=== PATIENT | male | born 1940 | race Caucasian/White ===

== ENCOUNTER → 2017-10-06 09:51 | Outpatient (CLI) | payer MEDICARE, OTHER, SELFPAY ==
--- NOTE | 2017-10-06 | DI.US.S_ITS ---
PROCEDURE: US ABDOMEN COMPLETE INDICATIONS: ABNORMAL RESULTS OF LIVER STUDIES TECHNIQUE: Real-time scanning was performed of the abdominal and retroperitoneal organs, with image documentation. COMPARISON: [facility], [place], ABDOMEN COMPLETE, 11/13/2008, 8:03. FINDINGS: Liver: Liver is normal in size and homogeneous in echotexture, diffusely hyperechoic consistent with fatty infiltration (prominent).. Gallbladder: The gallbladder appears normal. Biliary ducts: Intrahepatic bile ducts are non-dilated. Extrahepatic bile duct caliber measures 2.0 mm. Normal is 6-7 mm or less in diameter, or 10 mm or less post-cholecystectomy. Pancreas: Visualized portions of the pancreas are sonographically normal. Spleen: Spleen is normal in size and homogeneous in echotexture. Kidneys: Kidneys are normal in size and echotexture. Right kidney measures 12.6 cm long; left kidney measures 13.1 cm long. No hydronephrosis or nephrolithiasis. No solid masses. There is a 3.0 cm maximal dimension left renal cortical cyst, and 2 adjacent small echogenic foci are present at the renal hilum likely representing vascular calcifications by positioning. Aorta: Visualized aorta is normal in caliber at less than 3 cm. Iliacs: Proximal common iliac arteries are normal in caliber at less than 2.5 cm. IVC: Intrahepatic inferior vena cava is patent. Miscellaneous: No free abdominal fluid. IMPRESSION: Prominent fatty infiltration throughout the liver, no liver mass or biliary distention seen. Normal appearing gallbladder. 3 cm left renal cortical cysts, adjacent punctate calcifications likely are vascular in origin and there is no hydronephrosis. Dictated by: Gabriel Linder M.D. on 10/06/2017 at 10:39 Approved by: Gabriel Linder M.D. on 10/06/2017 at 10:42
== END ==
PROVIDERS: Family Provider Family Medicine; PCP Family Medicine; Visit Provider Family Medicine
DX: K76.0 Fatty (change of) liver, not elsewhere classified (principal); N28.1 Cyst of kidney, acquired; R94.5 Abnormal results of liver function studies
CPT/HCPCS: 76700

== ENCOUNTER → 2018-10-08 08:14 | Outpatient (CLI) | payer MEDICARE, OTHER, SELFPAY ==
--- NOTE | 2018-10-08 | DI.ECHO.S_ITS ---
[facility]---------+ [facility] +---------+ : : [address] : : : : [id number] : : : : Phone: [phone]+ Echocardiogram Report + + :Name: WENDY SMALL Study Date: 10/08/2018 Height: 72 in : :[facility] Exam Location: [facility] Weight: 187 lb : : Gender: Male BSA: 2.1 m2 : :: 1940 Age: 77 yrs BP: 130/50 mmHg: :Reason For Study: Hypertension : :Ordering Physician: Dr. Paige : :Maco Performed By: Ashley Page : + + Interpretation Summary The left ventricle is normal in size. Left ventricular systolic function is normal without focal wall motion abnormalities. The ejection fraction is estimated to be 60-65%. There has been no significant change since the previous study. Diastolic parameters suggest a relaxation abnormality of the left ventricle, consistent with probable normal filling pressures. The right ventricle is normal in size and function. The right ventricular systolic pressure is estimated to be at least 21 mmHg based on an estimated right atrial pressure of 3 mm Hg. The left atrium is moderately dilated. Right atrial size is normal. There is mild to moderate aortic regurgitation. There is no other significant valvular heart disease. The ascending aorta is moderate-severely enlarged. It has increased from 4.5 cm to 4.8 cm. Procedure: A two-dimensional transthoracic echocardiogram with color flow and Doppler was performed. The study quality was technically adequate. Comparison is made with the echocardiogram of 01/14/2016. The patient was in normal sinus rhythm during the exam. Left Ventricle: The left ventricle is normal in size. Left ventricular wall thickness is borderline increased. Left ventricular systolic function is normal without focal wall motion abnormalities. The ejection fraction is estimated to be 60-65%. There has been no significant change since the previous study. Diastolic parameters suggest a relaxation abnormality of the left ventricle, consistent with probable normal filling pressures. Right Ventricle: The right ventricle is normal in size and function. Atria: The left atrium is moderately dilated. Right atrial size is normal. There is no Doppler evidence for an interatrial shunt. Mitral Valve: The mitral valve leaflets are slightly calcified. There is trace mitral regurgitation. Aortic Valve: The aortic valve is trileaflet. The aortic valve is mildly calcified. The peak aortic velocity is 2.1 m/sec. The peak aortic velocity on the previous exam was 2.6 m/sec. The calculated aortic valve area is 2.0 cm2. The aortic valve mean gradient is 9.5 mmHg. There is no hemodynamically significant valvular aortic stenosis. There is mild to moderate aortic regurgitation. Tricuspid Valve: The tricuspid valve is normal in structure and function. There is trace tricuspid regurgitation. The right ventricular systolic pressure is estimated to be at least 21 mmHg based on an estimated right atrial pressure of 3 mm Hg. Pulmonic Valve: The pulmonic valve is not well visualized. There is trace pulmonic regurgitation. There is no other significant valvular heart disease. Great Vessels: The aortic root is normal size. The ascending aorta is moderate-severely enlarged. The aortic arch is normal in size. The pulmonary artery is not well visualized, but is probably normal size. The IVC is of normal diameter and collapses greater than 50% with a sniff. This suggests a low right atrial pressure of 3 mm Hg. Pericardium/ Pleura There is no pericardial effusion. There is no pleural effusion. MMode/2D Measurements & Calculations LVIDd: 4.2 cm LVOT diam: 2.1 cm LVIDs: 2.9 cm Ao root diam: 3.5 cm FS: 29.7 % asc Aorta Diam: 4.8 cm EPSS: 0.45 cm Ao Arch Diam (Prox Trans): 2.9 cm IVSd: 1.0 cm LVPWd: 0.91 cm LV khoury. diameter/BSA (cm/m^2): 2.0 LV sys. diameter/BSA (cm/m^2): 1.4 LA A2 area: 28.1 cm2 RA long axis: 5.3 cm LA A4 area: 19.6 cm2 RA area: 18.1 cm2 LA length (vol): 5.5 cm RA vol: 52.4 ml LA vol: 85.0 ml RA : 25.3 ml/m2 LA vol index: 41.1 ml/m2 IVC diam: 1.8 cm RVD1 (basal): 3.8 cm RVD2 (mid): 3.0 cm Doppler Measurements & Calculations Ao V2 max: 211.5 cm/sec LVOT Max Yuriy: 114.5 cm/sec Ao V2 mean: 147.3 cm/sec LV V1 max P.2 mmHg Ao max P.9 mmHg LV V1 VTI: 22.5 cm Ao mean P.5 mmHg ROEL(I,D): 2.0 cm2 Ao V2 VTI: 37.6 cm ROEL(V,D): 1.8 cm2 sev ratio: 0.60 ROEL indexed to BSA (cm^2/m^2): 0.96 AI P1/2t: 479.3 msec AI dec slope: 214.8 cm/sec2 MV E max yuriy: 85.1 cm/sec TR max yuriy: 210.3 cm/sec MV A max yuriy: 107.2 cm/sec TR max P.7 mmHg MV E/A: 0.79 PA V2 max: 96.2 cm/sec Med Peak E' Yuriy: 6.5 cm/sec PA V2 mean: 70.1 cm/sec E/E' med: 13.1 PA mean P.1 mmHg Lat Peak E' Yuriy: 6.3 cm/sec PA Accel Time: 0.11 sec E/E' lat: 13.5 E/e' average: 13.3 MV dec time: 0.17 sec MV P1/2t: 50.0 msec MV P1/2t max yuriy: 85.3 cm/sec SV(LVOT): 74.8 ml MVA(P1/2t): 4.4 cm2 Reading Physician:06:00 PM
== END ==
PROVIDERS: Family Provider Family Medicine; PCP Family Medicine; Visit Provider Family Medicine
DX: I35.1 Nonrheumatic aortic (valve) insufficiency (principal); I77.89 Other specified disorders of arteries and arterioles; I10 Essential (primary) hypertension
CPT/HCPCS: 93306

== ENCOUNTER → 2019-03-31 10:46 | Outpatient (CLI) | payer MEDICARE, OTHER, SELFPAY ==
--- NOTE | 2019-03-31 | DI.US.S_ITS ---
PROCEDURE: US CAROTID DOPPLER BI INDICATIONS: DIZZINESS AND GIDDINESS TECHNIQUE: Color and pulse Doppler interrogation was performed of both carotid systems, with image documentation and velocity measurements. COMPARISON: None. FINDINGS: Stenosis calculations are based on SRU (Society of Radiologists in Ultrasound) criteria. Right side: Brachial blood pressure: 140/66 mm Hg. Common carotid artery peak systolic velocity: 54 cm/sec. Internal carotid artery peak systolic velocity: 68 cm/sec. Internal carotid artery end diastolic velocity: 12 cm/sec. External carotid artery peak systolic velocity: 73 cm/sec. ICA/CCA peak systolic ratio: 1.3. Gutierrez scale imaging description: Mild scattered plaque. Percent internal carotid artery stenosis: Less than 50%. Vertebral artery: Flow direction is antegrade. Left side: Brachial blood pressure: 154/69 mm Hg. Common carotid artery peak systolic velocity: 49 cm/sec. Internal carotid artery peak systolic velocity: 130 cm/sec. Internal carotid artery end diastolic velocity: 27 cm/sec. External carotid artery peak systolic velocity: 69 cm/sec. ICA/CCA peak systolic ratio: 2.7. Gutierrez scale imaging description: Heavy scattered plaque. Percent internal carotid artery stenosis: 50-69% stenosis. Vertebral artery: Flow direction is antegrade. IMPRESSION: 1. 50-59% left internal carotid artery stenosis. 2. Less than 50% right internal carotid artery stenosis. Dictated by: Fausto MCDERMOTT Interpreted: Silvia Redding MD on 03/31/2019 at 16:20 Approved by: Silvia Redding M.D. on 04/01/2019 at 7:07
== END ==
PROVIDERS: Family Provider Family Medicine; PCP Family Medicine; Visit Provider Family Medicine
DX: I65.23 Occlusion and stenosis of bilateral carotid arteries (principal); R42 Dizziness and giddiness
CPT/HCPCS: 93880

== ENCOUNTER → 2019-08-24 10:34 | Outpatient (CLI) | payer MEDICARE, OTHER, SELFPAY ==
--- NOTE | 2019-08-24 | DI.RAD.S_ITS ---
PROCEDURE: XR LUMBAR SPINE 2-3V INDICATIONS: Low back pain TECHNIQUE: 3 views of the lumbar spine were acquired. COMPARISON: None. FINDINGS: Bones: No fracture or focal osseous destruction. Multilevel degenerative endplate sclerosis and spurring. Diffuse facet arthropathy. Mild narrowing of the L5-S1 disc space. Soft tissues: Scattered vascular calcifications seen in the aorta. IMPRESSION: Lower lumbar spondylosis and facet arthropathy as above Dictated by: Yovani Rivera M.D. on 08/24/2019 at 12:33 Approved by: Yovani Rivera M.D. on 08/24/2019 at 12:34
--- NOTE | 2019-08-24 | DI.RAD.S_ITS ---
PROCEDURE: XR HIP W PEL IF DONE LT 2V INDICATIONS: Low back pain TECHNIQUE: AP pelvis with lateral view(s) of the left hip(s). COMPARISON: None. FINDINGS: Bones: No fractures or dislocations. Pelvic ring appears intact. No suspicious bony lesions. Bilateral mild hip joint degeneration and lower lumbar spondylosis. Soft tissues: The visualized bowel gas pattern is normal. No suspicious soft tissue calcifications. IMPRESSION: Mild bilateral hip joint degeneration Lower lumbar spondylosis Dictated by: Yovani Rivera M.D. on 08/24/2019 at 12:31 Approved by: Yovani Rivera M.D. on 08/24/2019 at 12:33
== END ==
PROVIDERS: Family Provider Family Medicine; PCP Family Medicine; Referring Provider Family Medicine; Visit Provider Family Medicine
DX: M54.5 Low back pain (principal); M16.0 Bilateral primary osteoarthritis of hip; M47.816 Spondylosis without myelopathy or radiculopathy, lumbar region; M48.07 Spinal stenosis, lumbosacral region
CPT/HCPCS: 72100; 73502

== ENCOUNTER → 2019-10-31 10:17 | Outpatient (CLI) | payer MEDICARE, OTHER, SELFPAY ==
[2019-11-01 09:58] LABS: COVID19 Sendout Not Detected (Not Detect)
== END ==
PROVIDERS: PCP Family Medicine; Visit Provider Student in an Organized Health Care Education/Training Program
DX: Z01.812 Encounter for preprocedural laboratory examination (principal)
CPT/HCPCS: 87635

== ENCOUNTER 2019-11-03 12:10 | Day surgery (SDC) | payer MEDICARE, OTHER, SELFPAY ==
[2019-11-03] VITALS (9 sets, daily range): BP systolic 134–154; BP diastolic 54–67; PULSE 55–69; RESP 13–18; TEMP 36.3–36.6; O2SAT 92–100; BMI 24.4
--- NOTE | 2019-11-03 | PATH_ITS ---
[facility] Accession Number: [id number] . 01 Material submitted: . gastrointestinal site - RANDOM GASTRIC BIOPSIES . 02 Diagnosis: Stomach, Random Biopsies: Acute erosive gastritis. No evidence of Helicobacter on H/E stain. Negative for intestinal metaplasia. Negative for dysplasia and malignancy. [facility] 11/04/2019 1040 Local . 02 Comment: A Helicobacter immunohistochemical stain will be performed and the results reported as an addendum. . 02 Electronically signed: . Yana Rueda MD, Pathologist NPI- [id number] . 01 Gross description: . RANDOM GASTRIC BIOPSIES: Received in formalin is 1 fragment(s) of alexander, soft tissue measuring 0.3 x 0.2 x 0.2 cm submitted entirely in 1 cassette(s) /DOUGLAS 11/04/2019 0028 Local . 02 Pathologist provided ICD-10: D64.9, K29.70 . 02 CPT . 233043, [id number] Performed at: 01 [facility] [address], [place], [place] [id number] MD Cristhian Teresa MD Phone: [phone] Performed at: 02 [facility] [address] [place], [place] [id number] MD Yana Rueda MD Phone: [phone]
[2019-11-03] MEDS: LACTATED RINGERS 1,000 ML 200 ML IV (13:20)
--- NOTE | 2019-11-03 14:32 | PM.PREOP ---
Pre-operative Note COVID-19 COVID-19 status: Negative Interval Note History & Physical reviewed/Exam performed by Physician: Yes Changes to H&P: No ASA Class (for procedural sedation): II
[2019-11-03] MEDS: LIDOCAINE 4% SOLN 50 ML 20 ML TOP (14:41)
[2019-11-03] MEDS: MIDAZOLAM 5 MG/5 ML VIAL IV (14:43)
[2019-11-03] MEDS: fentaNYL 250 MCG/5 ML INJ IV (14:43)
--- NOTE | 2019-11-03 14:44 | PM.OP.ENDO ---
Operative Date/Time/Diagnoses Date of procedure: 11/03/19 Time of procedure: 14:44 Pre-op diagnosis: Anemia Post-op diagnosis: same Procedure & Clinicians Study performed: Esophagoduodenoscopy Colonoscopy Same procedure as scheduled: Yes Indications: 79-year-old man with history of anemia here for diagnostic EGD and colonoscopy Surgeon: Taj Sapp Procedure Notes SCOAP/Timeout: Performed Procedure in detail: Patient placed in left lateral decubitus position. Time out was performed. Procedural sedation was administered with Versed and Fentanyl. A bite block was placed. the scope was inserted into the mouth and advanced through the esophagus and into the stomach. Stomach was notable for mild gastritis in the antrum. There was no specific ulcer but there was gastritis and several random gastric biopsies were taken. The pylorus was intubated and the duodenum was normal. The scope was retroflexed within the stomach and there was no hiatal hernia. The scope was withdrawn into the esophagus the Z line was seen at 40 cm from the incisions. There was no birch's esophagitis or masses or strictures. Stomach was desufflated and scope removed. Patient tolerated procedure well. Patient placed in left lateral decubitus position. Time out was performed. Procedural sedation was administered with Versed and Fentanyl. A rectal exam demonstrated no external hemorrhoids no internal masses. Colonoscopy scope was placed into the rectum and advanced through the colon to the cecum. The ileocecal valve was identified. The scope was then slowly withdrawn examining colon thoroughly in all directions. The colonoscopy was notable for the following 1. No masses or polyps 2. Quality of prep excellent 3. Grade 1 internal hemorrhoids Scope withdrawal time: 6 Sedation minutes: 28 Findings: gastritis Specimen(s): other (gastric biopsy) Complications: none Impression: gastritis Post-procedure Recommendations: Colonscopy in 10 years, Prescription for (omeprazole) and No ASA/NSAIDS Disposition: same day surgery
== END 2019-11-03 16:10 | disposition home or self-care (01) ==
PROVIDERS: PCP Family Medicine; Referring Provider Surgery; Visit Provider Surgery
PROC: 0DJD8ZZ Inspection of Lower Intestinal Tract, Via Natural or Artificial Opening Endoscopic (ICD-10-PCS; CPT 45378; principal; 2019-11-03 13:45)
PROC: 0DJ08ZZ Inspection of Upper Intestinal Tract, Via Natural or Artificial Opening Endoscopic (ICD-10-PCS; CPT 43235; 2019-11-03 13:45)
DX: K29.00 Acute gastritis without bleeding (principal); D64.9 Anemia, unspecified; E11.9 Type 2 diabetes mellitus without complications; I10 Essential (primary) hypertension; K64.0 First degree hemorrhoids
CPT/HCPCS: 43239; 45378; 99152; 99153; J2250; J3010

== ENCOUNTER → 2020-01-17 06:14 | Outpatient (CLI) | payer MEDICARE, OTHER, SELFPAY ==
--- NOTE | 2020-01-17 | DI.ECHO.S_ITS ---
[facility]---------+ [facility] +---------+ : : [address] : : : : [id number] : : : : Phone: [phone]+ Echocardiogram Report + + :Name: WENDY SMALL Study Date: 01/17/2020 Height: 70 in : :[facility] Weight: 190 lb : : Gender: Male BSA: 2.0 m2 : :: 1940 Age: 79 yrs BP: 151/67 mmHg: :Reason For Study: DIZZINESS : :Ordering Physician: Dr. Paige : :Maco Performed By: Amy Barron : :Referring: RUTHANN HENDERSON L : + + Interpretation Summary 1) Normal left ventricular size, thickness, wall motion, and systolic function (EF 65-70%). 2) Normal right ventricular size and function. 3) Diastolic parameters suggest a pseudonormalization pattern, consistent with probable elevated filling pressures. 4) There is mild aortic stenosis. 5) There is mild to moderate aortic regurgitation. 6) The ascending aorta is moderately enlarged at 4.8cm. 7) Hypertension present during the study (BP 151/67mmHg). 8) Compared to the Echo done 10/08/2018, no significant change. Procedure: A two-dimensional transthoracic echocardiogram with color flow and Doppler was performed. The study quality was technically adequate. Comparison is made with the echocardiogram of 10/08/2018. The patient was in sinus bradycardia with heart rates between 59-64 bpm during the exam. Left Ventricle: The left ventricle is normal in size and wall thickness. The ejection fraction is estimated to be 65-70%. Left ventricular systolic function is normal without focal wall motion abnormalities. Diastolic parameters suggest a pseudonormalization pattern, consistent with probable elevated filling pressures. Right Ventricle: The right ventricle is normal in size and function. Atria: The left atrium is moderately dilated. Right atrial size is normal. There is no Doppler evidence for an interatrial shunt. Mitral Valve: The mitral valve leaflets are mildly calcified. There is mild mitral annular calcification. There is trace mitral regurgitation. Aortic Valve: The aortic valve is mildly calcified. The peak aortic velocity is 2.26 m/sec. The aortic valve mean gradient is 11.4 mmHg. The calculated aortic valve area is 1.8 cm2. There is mild aortic stenosis. There is mild to moderate aortic regurgitation. Tricuspid Valve: The tricuspid valve is normal in structure and function. There is trace tricuspid regurgitation. Pulmonary artery pressures cannot be estimated because of the lack of a measurable TR jet velocity but the IVC suggests a CVP of around 3 mmHg. Pulmonic Valve: The pulmonic valve is not well visualized. There is no pulmonic valvular regurgitation. Great Vessels: The aortic root is normal size. The ascending aorta is moderately enlarged. The IVC is of normal diameter and collapses greater than 50% with a sniff. This suggests a low right atrial pressure of 3 mm Hg. Pericardium/ Pleura There is no pericardial effusion. There is no pleural effusion. MMode/2D Measurements & Calculations LVIDd: 4.5 cm LVOT diam: 2.1 cm LVIDs: 3.2 cm Ao root diam: 3.5 cm FS: 28.8 % asc Aorta Diam: 4.8 cm EPSS: 0.64 cm Ao Arch Diam (Prox Trans): 2.9 cm IVSd: 1.2 cm LVPWd: 1.1 cm LV khoury. diameter/BSA (cm/m^2): 2.2 LV sys. diameter/BSA (cm/m^2): 1.6 LA A2 area: 25.8 cm2 RA long axis: 5.2 cm LA A4 area: 18.1 cm2 RA area: 17.0 cm2 LA length (vol): 5.2 cm RA vol: 47.2 ml LA vol: 76.0 ml RA : 23.1 ml/m2 LA vol index: 37.2 ml/m2 IVC diam: 1.4 cm RVD1 (basal): 3.2 cm TAPSE: 2.4 cm Doppler Measurements & Calculations Ao V2 max: 226.3 cm/sec LVOT Max Yuriy: 114.7 cm/sec Ao V2 mean: 157.9 cm/sec LV V1 max P.3 mmHg Ao max P.5 mmHg LV V1 VTI: 28.3 cm Ao mean P.4 mmHg ROEL(I,D): 1.8 cm2 Ao V2 VTI: 56.9 cm ROEL(V,D): 1.8 cm2 sev ratio: 0.50 ROEL indexed to BSA (cm^2/m^2): 0.87 AI P1/2t: 563.5 msec AI dec slope: 222.1 cm/sec2 MV E max yuriy: 91.4 cm/sec PA V2 max: 78.2 cm/sec MV A max yuriy: 95.3 cm/sec PA V2 mean: 54.0 cm/sec MV E/A: 0.96 PA mean P.3 mmHg Med Peak E' Yuriy: 6.0 cm/sec PA pr(Accel): 17.3 mmHg E/E' med: 15.3 Lat Peak E' Yuriy: 6.6 cm/sec E/E' lat: 13.8 E/e' average: 14.6 MV dec time: 0.17 sec SV(LVOT): 100.6 ml Reading Physician:05:28 PM
--- NOTE | 2020-01-17 | DI.US.S_ITS ---
PROCEDURE: US CAROTID DOPPLER BI INDICATIONS: DIZZINESS TECHNIQUE: Color and pulse Doppler interrogation was performed of both carotid systems, with image documentation and velocity measurements. COMPARISON: [facility], , US CAROTID DOPPLER BI, 03/31/2019, 11:52. FINDINGS: Stenosis calculations are based on SRU (Society of Radiologists in Ultrasound) criteria. Right side: Brachial blood pressure: 148/63 mm Hg. Common carotid artery peak systolic velocity: 54 cm/sec. Internal carotid artery peak systolic velocity: 47 cm/sec. Internal carotid artery end diastolic velocity: 12 cm/sec. External carotid artery peak systolic velocity: 54 cm/sec. ICA/CCA peak systolic ratio: 0.9. Gutierrez scale imaging description: Mild calcific plaque at the proximal internal carotid artery without luminal stenosis. Percent internal carotid artery stenosis: Less than 50% . Vertebral artery: Flow direction is antegrade. Left side: Brachial blood pressure: 136/64 mm Hg. Common carotid artery peak systolic velocity: 60 cm/sec. Internal carotid artery peak systolic velocity: 134 cm/sec. Internal carotid artery end diastolic velocity: 32 cm/sec. External carotid artery peak systolic velocity: 87 cm/sec. ICA/CCA peak systolic ratio: 2.2. Gutierrez scale imaging description: Moderate intimal medial thickening throughout the common carotid artery. Calcific plaque in the carotid bulb without significant stenosis. Noncalcified plaque circumferentially narrowing the internal carotid artery. Percent internal carotid artery stenosis: 50-69% Vertebral artery: Flow direction is antegrade. IMPRESSION: 1. Stable, 50-69% left ICA stenosis. 2. Less than 50% right ICA stenosis. Dictated by: Sarah Roa M.D. on 01/17/2020 at 9:30 Approved by: Sarah Roa M.D. on 01/17/2020 at 9:44
== END ==
PROVIDERS: PCP Family Medicine; Referring Provider Family Medicine; Visit Provider Family Medicine
DX: I65.23 Occlusion and stenosis of bilateral carotid arteries (principal); I35.2 Nonrheumatic aortic (valve) stenosis with insufficiency; I77.89 Other specified disorders of arteries and arterioles; R42 Dizziness and giddiness
CPT/HCPCS: 93306; 93880

== ENCOUNTER → 2020-09-20 11:38 | Outpatient (CLI) | payer MEDICARE, OTHER, SELFPAY ==
--- NOTE | 2020-09-20 | DI.US.S_ITS ---
PROCEDURE: US CAROTID DOPPLER BI INDICATIONS: DIZZINESS TECHNIQUE: Color and pulse Doppler interrogation was performed of both carotid systems, with image documentation and velocity measurements. COMPARISON: None. FINDINGS: Stenosis calculations are based on SRU (Society of Radiologists in Ultrasound) criteria. Right side: Brachial blood pressure: 133/70 mm Hg. Common Carotid Artery PSV: - Distal: 61 cm/s (previously 52 cm/s) Internal Carotid Artery PSV - 59 cm/s (previously 47 cm/s) EDV- 19 cm/s (previously 12 cm/s) External Carotid Artery PSV- Proximal: 83 cm/s (previously 54 cm/s) ICA/CCA PSV- Ratio: 1.0 (previously 0.9 cm/s) Gutierrez scale imaging description: Mild stenosis secondary to hard plaque Percent internal carotid artery stenosis: Less than 50% . (previously less than 50%) Vertebral artery: Flow direction is antegrade. Left side: Brachial blood pressure: 143/68 mm Hg. Common Carotid Artery PSV- Distal: 59 cm/s (previously 60 cm/s) Internal Carotid Artery PSV- 129 cm/s (previously 134 cm/s) EDV- 33 cm/s (previously 32 cm/s) External Carotid Artery PSV- Proximal: 84 cm/s (previously 87 cm/s) ICA/CCA PSV- Ratio: 2.2 (previously 2.2 cm/s) Gutierrez scale imaging description: Soft plaque results in moderate, 50-69% proximal internal carotid artery stenosis. Percent internal carotid artery stenosis: 50-69% . (previously 50-69%) Vertebral artery: Flow direction is antegrade. IMPRESSION: 1. Findings are stable. 2. Mild, less than 50% right internal carotid artery stenosis. 3. Moderate, 50-69% left internal carotid artery stenosis. Dictated by: Peter Bedoya M.D. on 09/21/2020 at 9:14 Approved by: Peter Bedoya M.D. on 09/21/2020 at 9:21
== END ==
PROVIDERS: PCP Family Medicine; Referring Provider Family Medicine; Visit Provider Family Medicine
DX: I35.0 Nonrheumatic aortic (valve) stenosis (principal); R42 Dizziness and giddiness
CPT/HCPCS: 93880

== ENCOUNTER → 2021-10-25 08:29 | Outpatient (CLI) | payer MEDICARE, OTHER, SELFPAY ==
--- NOTE | 2021-10-25 | DI.ECHO.S_ITS ---
[facility]---------+ [facility] +---------+ : : [address] : : : : [id number] : : : : Phone: [phone]+ Echocardiogram Report + + :Name: WENDY SMALL Study Date: 10/25/2021 Height: 72 in : :[facility] ReadingLocation: Weight: 185 lb : : Gender: Male BSA: 2.1 m2 : :: 1940 Age: 81 yrs BP: 142/68 mmHg: :Reason For Study: DIZZINESS AND GIDDINESS : :Ordering Physician: SANTIAGO, : :RUTHANN Bryant Performed By: Amy Barron : :Referring: RUTHANN HENDERSON : + + Interpretation Summary The left ventricle is normal in size. Left ventricular systolic function is normal. LV ejection fraction 55 to 60%. The right ventricle is normal in size and function. The aortic valve is trileaflet. There is mildly reduced leaflet mobility. The peak aortic velocity is 2.4 m/sec. The aortic valve mean gradient is 14 mmHg. The peak aortic velocity on the previous exam was 2.26 m/sec. There is mild aortic stenosis. There is mild to moderate aortic regurgitation. The ascending aorta is moderately enlarged. 4.8 cm in diameter. Without any significant change from the previous study. Procedure: A two-dimensional transthoracic echocardiogram with color flow and Doppler was performed. The study quality was technically adequate. Comparison is made with the echocardiogram of 01/17/2020. The patient was in sinus rhythm with heart rates between 64-86 bpm during the exam. Left Ventricle: The left ventricle is normal in size. Left ventricular wall thickness is mildly increased. There is no thrombus. The ejection fraction is estimated to be 55-60%. Left ventricular systolic function is normal. There are no focal wall motion abnormalities. Diastolic parameters suggest a relaxation abnormality of the left ventricle, consistent with probable normal filling pressures. Right Ventricle: The right ventricle is normal in size and function. Atria: The left atrial size is normal. The left atrium has mildly decreased in size since the prior echo exam. Right atrial size is normal. There is no Doppler evidence for an interatrial shunt. Mitral Valve: The mitral valve leaflets are mildly calcified. There is mild to moderate mitral annular calcification. No significant mitral valve stenosis. There is mild mitral regurgitation. Compared to the prior echo study, there has been no change in the severity of mitral regurgitation. Aortic Valve: The aortic valve is mildly calcified. The aortic valve is trileaflet. There is mildly reduced leaflet mobility. There is mild aortic stenosis. The peak aortic velocity is 2.4 m/sec. The aortic valve mean gradient is 14 mmHg. The calculated aortic valve area is 1.4 cm2. The peak aortic velocity on the previous exam was 2.26 m/sec. There is mild to moderate aortic regurgitation. Tricuspid Valve: The tricuspid valve is normal in structure and function. There is trace tricuspid regurgitation. The right ventricular systolic pressure is estimated to be at least 28 mmHg based on an estimated right atrial pressure of 8 mm Hg. Pulmonic Valve: The pulmonic valve is not well seen, but is grossly normal. There is no pulmonic valvular regurgitation. Great Vessels: The aortic root is normal size. The ascending aorta is moderately enlarged. The IVC is dilated (diameter is greater than 2.1 cm) yet it collapses greater than 50% with a sniff. This suggests a right atrial pressure of 8 mm Hg. Pericardium/ Pleura There is no pericardial effusion. There is no pleural effusion. MMode/2D Measurements & Calculations LVIDd: 4.7 cm LVOT diam: 2.1 cm LVIDs: 3.2 cm Ao root diam: 3.3 cm FS: 31.5 % asc Aorta Diam: 4.8 cm EPSS: 0.90 cm Ao Arch Diam (Prox Trans): 3.1 cm IVSd: 1.1 cm LVPWd: 1.3 cm LV khoury. diameter/BSA (cm/m^2): 2.3 LV sys. diameter/BSA (cm/m^2): 1.6 LA A2 area: 24.6 cm2 RA long axis: 5.4 cm LA A4 area: 15.9 cm2 RA area: 16.9 cm2 LA length (vol): 5.2 cm RA vol: 44.4 ml LA vol: 64.0 ml RA : 21.6 ml/m2 LA vol index: 31.0 ml/m2 IVC diam: 1.9 cm RVD1 (basal): 3.1 cm RVD2 (mid): 2.6 cm TAPSE: 2.1 cm Doppler Measurements & Calculations Ao V2 max: 245.2 cm/sec LVOT Max Yuriy: 100.1 cm/sec Ao V2 mean: 164.0 cm/sec LV V1 max P.0 mmHg Ao max P.6 mmHg LV V1 VTI: 23.4 cm Ao mean P.7 mmHg ROEL(I,D): 1.5 cm2 Ao V2 VTI: 53.1 cm ROEL(V,D): 1.4 cm2 sev ratio: 0.44 ROEL indexed to BSA (cm^2/m^2): 0.73 AI P1/2t: 514.3 msec AI dec slope: 241.4 cm/sec2 MV E max yuriy: 82.4 cm/sec TR max yuriy: 222.5 cm/sec MV A max yuriy: 93.1 cm/sec TR max P.8 mmHg MV E/A: 0.88 PA V2 max: 112.0 cm/sec Med Peak E' Yuriy: 5.8 cm/sec PA V2 mean: 77.5 cm/sec E/E' med: 14.3 PA mean P.6 mmHg Lat Peak E' Yuriy: 6.8 cm/sec PA pr(Accel): 22.5 mmHg E/E' lat: 12.1 E/e' average: 13.2 MV dec time: 0.19 sec SV(LVOT): 79.5 ml Reading Physician:02:46 PM
--- NOTE | 2021-10-25 10:42 | DI.US.S_ITS ---
PROCEDURE: US CAROTID DOPPLER BI INDICATIONS: DIZZINESS AND GIDDINESS TECHNIQUE: Color and pulse Doppler interrogation was performed of both carotid systems, with image documentation and velocity measurements. COMPARISON: [facility], [place], US CAROTID DOPPLER BI, 09/20/2020, 13:25. FINDINGS: Stenosis calculations are based on SRU (Society of Radiologists in Ultrasound) criteria. Right side: Brachial blood pressure: 138/68 mm Hg. Common carotid artery peak systolic velocity: 50 cm/sec. Internal carotid artery peak systolic velocity: 58 cm/sec. Internal carotid artery end diastolic velocity: 10 cm/sec. External carotid artery peak systolic velocity: 74 cm/sec. ICA/CCA peak systolic ratio: 1.2 . Gutierrez scale imaging description: Mild atherosclerotic plaque Percent internal carotid artery stenosis: Less than 50% . Vertebral artery: Flow direction is antegrade. Left side: Brachial blood pressure: 145/72 mm Hg. Common carotid artery peak systolic velocity: 50 cm/sec. Internal carotid artery peak systolic velocity: 176 cm/sec, previously 129. Internal carotid artery end diastolic velocity: 26 cm/sec. External carotid artery peak systolic velocity: 83 cm/sec. ICA/CCA peak systolic ratio: 3.5, previously 2.2 Gutierrez scale imaging description: Moderate atherosclerotic plaque Percent internal carotid artery stenosis: Greater than 50 % . Vertebral artery: Flow direction is antegrade. IMPRESSION: 1. Atherosclerotic stenosis in proximal left ICA correlates with a 50-69% stenosis, nevertheless increased from the prior. 2. Stable less than 50% right proximal ICA stenosis. Approved by: Tre Lindsey M.D. on 10/25/2021 at 12:25
== END ==
PROVIDERS: PCP Family Medicine; Referring Provider Family Medicine; Visit Provider Family Medicine
DX: I65.23 Occlusion and stenosis of bilateral carotid arteries (principal); R42 Dizziness and giddiness; I35.0 Nonrheumatic aortic (valve) stenosis
CPT/HCPCS: 93306; 93880

== ENCOUNTER 2022-10-28 07:34 | Day surgery (SDC) | payer MEDICARE, OTHER, SELFPAY ==
[2022-10-17 10:44] VITALS: BMI 26.4
[2022-10-28 08:15] VITALS: BMI 26.4
[2022-10-28] MEDS: LACTATED RINGERS 1,000 ML 21 ML IV (08:23)
[2022-10-28 08:24] VITALS: BP 144/64; PULSE 71; RESP 16; TEMP 36.5; O2SAT 98
--- NOTE | 2022-10-28 08:33 | PM.PREOP ---
Pre-operative Note COVID-19 COVID-19 status: Not tested Criteria for continued procedure: Delay expected to result in less-positive ultimate med/surg outcome and Non-surgical alternatives not available or appropriate per current SOC Interval Note History & Physical reviewed/Exam performed by Physician: Yes Changes to H&P: No
[2022-10-28] MEDS: CEFAZOLIN 2 GM/100 ML PREMIX 100 ML IV (09:12)
--- NOTE | 2022-10-28 09:30 | SUR.OPER ---
Lithotomy on padded OR bed, head on pillow, left arms secured on padded arm board at <90 degrees abduction, right arm tucked with gel pad. Legs secured in padded yellow fins stirrups.
--- NOTE | 2022-10-28 09:57 | P.OP_ITS ---
Procedure & Clinicians Procedure: Photo vaporization and laser enucleation of prostate Same procedure as scheduled: Yes Indications: This 82-year-old male presented with profound complaints of bladder outlet obstruction, lower urinary tract symptoms and was found to have a median lobe and obstructing prostate he presents this time for the above procedure to eliminate and improve his urinary symptoms. Surgeon: Tesfaye Higginbotham Click Yes if Unassisted: Yes Anesthesia Type: General Operative Notes Findings: Urethra normal to the prostatic fossa which shows trilobar obstruction median lobe bulging into the bladder. Ureteral orifices in normal position with clear efflux there severe trabeculation cellules mucosa is otherwise normal no evidence of fistula stone. At the end of the procedure the prostatic fossa was widely patent and with the bladder full and the scope removed vigorous stream was noted. Total laser time was 13 minutes 51 seconds total laser energy 122,679 joules. Twenty-two Norwegian 5 cc Rice catheter was left in place with 14 cc in the balloon. Closure Type: not applicable Specimen(s): none sent Prosthetic devices, grafts, tissues, transplants, or devices: Twenty-two Norwegian 5 cc Rice catheter with 14 cc sterile water in the balloon. Applied: catheter (Twenty-two Norwegian 5 cc Rice catheter with 14 cc of sterile water in the balloon) Estimated Blood Loss (mL): 10 Blood products transfused: none Procedure in detail: Procedure in detail: After informed consent was obtained, the patient was identified and brought to the operating room where he is placed in a supine position on the table and had anesthesia induced and maintained. Showing an adequate level of anesthesia the patient was transitioned to the lithotomy position where he was prepped, draped, prepared for Transurethral procedure. After prepping, draping, time-out and ensuring an adequate level of anesthesia the laser resectoscope was passed through the urethral prostate and into the bladder under direct vision once within the bladder cystoscopy was performed. The laser fiber was then inserted in the lateral lobes were marked at the level of the verumontanum with the laser as the distal extent of resection. Then in the lateral sulci right and left of the median lobe a ?flow channel? was made us ing the laser. With this the median lobe was undermined and enucleated. It was then vaporized with this done attention was then turned to the lateral lobes which were vaporized from the bladder neck to the level of the verumontanum sequentially till the prostatic fossa was widely patent and open. This took total laser energy of 122,679 joules. With hemostasis secured the bladder was filled scope was removed and a vigorous stream was noted. The 22 Norwegian catheter was then passed into the bladder the balloon filled with 14 cc of sterile water and placed to gravity drainage. At this point the patient was awakened transferred to the postanesthesia care unit for recovery he tolerated the procedure well and there were no complications. Patient will be discharged to home with a Rice catheter and will follow up in my office in the morning for catheter removal and voiding trial. Complications: none Post-operative Condition: stable Disposition: PACU Plan for aftercare: Patient to be discharged home with a Rice catheter to follow up my office in the morning for catheter removal and voiding trial.
[2022-10-28 10:03] VITALS: BP 178/79; PULSE 92; RESP 13; TEMP 36.2; O2SAT 98
[2022-10-28 10:09] VITALS: PULSE 94; RESP 14; TEMP 36.2; O2SAT 98
[2022-10-28 10:11] VITALS: BP 174/81
[2022-10-28] MEDS: OXYCODONE/ACETAMINOPHEN 5/325 TABLET 1 TAB PO (10:16)
[2022-10-28] MEDS: PHENAZOPYRIDINE 100 MG TABLET 200 MG PO (10:16)
[2022-10-28] MEDS: OXYBUTYNIN 5 MG TABLET PO (10:16)
[2022-10-28 10:17] VITALS: BP 141/68; PULSE 78; RESP 14; TEMP 36.2; O2SAT 99
[2022-10-28 10:25] VITALS: BP 139/62; PULSE 72; RESP 11; TEMP 36.2; O2SAT 99
--- NOTE | 2022-10-28 11:08 | SUR.PHASEII ---
discharge instructions review with spouse
== END 2022-10-28 11:08 | disposition home or self-care (01) ==
PROVIDERS: PCP Family Medicine; Referring Provider Urology; Visit Provider Urology
PROC: (CPT 52648; principal; 2022-10-28 09:15)
DX: N32.0 Bladder-neck obstruction (principal); N40.1 Benign prostatic hyperplasia with lower urinary tract symptoms; R39.9 Unspecified symptoms and signs involving the genitourinary system
CPT/HCPCS: 52648; 82962; J0690; J1100; J2405; J2704; J3010

== ENCOUNTER → 2022-12-09 15:50 | Outpatient (CLI) | payer MEDICARE, OTHER, SELFPAY | PROVIDERS: PCP Family Medicine; Visit Provider Urology | DX: N40.1 Benign prostatic hyperplasia with lower urinary tract symptoms (principal); R39.12 Poor urinary stream; R33.9 Retention of urine, unspecified; R39.9 Unspecified symptoms and signs involving the genitourinary system; N32.0 Bladder-neck obstruction; R35.1 Nocturia; Z87.891 Personal history of nicotine dependence | CPT/HCPCS: 51798; 81002; 87086 ==

== ENCOUNTER → 2023-06-05 10:54 | Outpatient (CLI) | payer MEDICARE, OTHER, SELFPAY ==
--- NOTE | 2023-06-05 10:57 | DI.CT.S_ITS ---
PROCEDURE: CT ANGIO CHEST ABDOMEN PELVIS INDICATIONS: Aneurysm of the ascending aorta, without rupture TECHNIQUE: Precontrast 5 mm thick sections acquired from the lung apices to the iliac crests. After the administration of intravenous contrast, 2.5 mm thick sections again acquired from the lung apices to the iliac crests. Maximum intensity projection (MIP) oblique sagittal and coronal reformats were then acquired. For radiation dose reduction, the following was used: automated exposure control. COMPARISON: None. FINDINGS: Image quality: Diagnostic. AORTA: The ascending thoracic aorta measures 5.0 cm in oblique axial diameter at the 2:00 o'clock and 8 o'clock position. The thoracic aortic arch in the descending thoracic aorta demonstrate normal course and caliber. Scattered atheromatous calcifications are present at the thoracic arch. The celiac axis, SMA, bilateral renal arteries and the ADONIS are patent. Atheromatous calcifications are scattered throughout the abdominal aorta and the iliac arteries without focal hemodynamically significant stenosis or aortic dissection. CHEST: Lower Neck: No enlarged lymph nodes. Thyroid: No thyroid nodules which require sonographic evaluation. Axillae: No enlarged lymph nodes. Chest Wall: Unremarkable. Lungs and Pleura: No pneumothorax or pleural effusions. There is bilateral apical scarring. No acute airspace opacities. No suspicious pulmonary nodules. Heart: Heart size is normal. No pericardial effusion. Thoracic Vessels: Pulmonary arteries demonstrate normal size. Mediastinum and Amy: No enlarged lymph nodes. Esophagus: No wall thickening. No hiatal hernia. ABDOMEN: Liver: No solid mass. Gallbladder: No radiopaque gallstones or wall thickening. Biliary ducts: No biliary dilation. Pancreas: No ductal dilation. Spleen: Size is within normal limits. Adrenal Glands: No adrenal nodules. Kidneys and Ureters: There are bilateral nonobstructing renal calculi. The largest on the right measures 9 mm in diameter and the largest on the left measures 9 mm in diameter. No hydronephrosis, hydroureter, or ureterolithiasis. There are bilateral low-density cortical cystic lesions. Stomach and Bowel: Normal colonic caliber, without significant wall thickening. The appendix is thin walled and gas filled. Peritoneum: No abnormal intraperitoneal fluid. No free air. Ventral Wall: No hernia. Abdominal Nodes: No retroperitoneal or mesenteric adenopathy by size criteria. Vessels: Inferior vena cava is normal in size. PELVIS: Pelvic Organs: Unremarkable. Bladder: Unremarkable. Pelvic Nodes: No enlarged lymph nodes. Miscellaneous: No inguinal hernias are seen. Bones: Unremarkable. IMPRESSION: 1. Aneurysm of the ascending thoracic aorta. 6-[address] surveillance recommended. 2. No acute intra-abdominal findings. Normal appendix. 3. Bilateral nonobstructive nephrolithiasis. Dictated by: Cleo Welch M.D. on 06/05/2023 at 14:05 Approved by: Cleo Welch M.D. on 06/05/2023 at 14:13
[2023-06-05 11:19] LABS: Estimated Glomerular Filt Rate > 60 mL/min (>60)
== END ==
LOC: CT 10:55
PROVIDERS: Radiology Diagnostic Radiology; PCP Physician Assistant; Referring Provider Internal Medicine Cardiovascular Disease; Visit Provider Internal Medicine Cardiovascular Disease
DX: I71.21 Aneurysm of the ascending aorta, without rupture (principal); D64.9 Anemia, unspecified; N20.0 Calculus of kidney
CPT/HCPCS: 36415; 71275; 74174; 82565; Q9967

== ENCOUNTER 2025-02-28 11:38 | Inpatient (IN) | payer MEDICARE, OTHER, SELFPAY ==
[2025-02-28] VITALS (22 sets, daily range): BP systolic 137–164; BP diastolic 41–73; PULSE 65–89; RESP 16–25; TEMP 36.3–37.7; O2SAT 94–100; BMI 26.7
--- NOTE | 2025-02-28 11:43 | EKG_ITS ---
[id number], [place] [address] Test Date: 2025-02-28 Pat Name: Pardeep Meyer Department: Room: Gender: Male Detention Attendant: FRANKLIN : 1940 Requested By: Order Number: [id number] Reading MD: Willy Moreau MD Measurements Intervals [place] Rate: 73 P: 82 IA: 186 QRS: -8 QRSD: 78 T: 47 QT: 392 QTc: 431 Interpretive Statements Normal sinus rhythm Nonspecific ST abnormality Electronically Signed On 02-28-2025 13:53:28 PST by Willy Moreau MD
--- NOTE | 2025-02-28 12:01 | DI.RAD.S_ITS ---
PROCEDURE: XR CHEST 1V INDICATIONS: gen weak TECHNIQUE: One view of the chest was acquired. COMPARISON: None. FINDINGS: Surgical changes and devices: None. Lungs and pleura: Lungs are clear. No pleural effusions or pneumothorax. Mediastinum: Tortuous thoracic aorta. Heart size is enlarged. Bones and chest wall: No suspicious bony lesions. Overlying soft tissues appear unremarkable. IMPRESSION: No acute cardiopulmonary pathology. Dictated by: Jose Elias Garrison M.D. on 02/28/2025 at 12:13 Approved by: Jose Elias Garrison M.D. on 02/28/2025 at 12:14
[2025-02-28 12:12] LABS: Add Manual Diff / Slide Review NO; Hematocrit 29.5 % (41-53); Hemoglobin 10.6 g/dL (13.5-17.5); Lymphocytes Absolute Auto 300 /uL (1100-4500); Mean Corpuscular HGB Conc 36.0 % (30-36); Mean Corpuscular Hemoglobin 37.7 PG (26-34); Mean Corpuscular Volume 104.7 fL (80-100); Platelet Count 155 X10^3/uL (150-400)
[2025-02-28 12:17] LABS: Alanine Aminotransferase 107 IU/L (<50); Albumin 4.3 g/dL (3.5-5.0); Albumin Globulin Ratio 1.7 (1.0-2.8); Alkaline Phosphatase 72 U/L (38-126); Blood Urea Nitrogen 29 mg/dL (9-20); Calcium 9.0 mg/dL (8.4-10.2); Carbon Dioxide 24 mmol/L (22-32); Chloride 103 mmol/L (98-107); Estimated Glomerular Filt Rate 58 mL/min (>60); Globulin 2.5 g/dL (1.7-4.1); Glucose 106 mg/dL (70-99); HEMOLYSIS < 15 (0-50); Potassium 3.5 mmol/L (3.4-5.1); Sodium 139 mmol/L (137-145); Total Protein 6.8 g/dL (6.3-8.2)
[2025-02-28 12:29] LABS: Troponin I 0.078 ng/mL (0.01-0.034)
[2025-02-28 13:19] LABS: Creatine Kinase 24600 U/L (55-170)
[2025-02-28 13:58] LABS: Bilirubin Urine UA NEGATIVE (NEGATIVE); Color Urine UA YELLOW; Glucose Urine UA 2+ g/dL (Negative); Ketones Urine UA NEGATIVE (NEGATIVE); Leukocyte Esterase Urine UA NEGATIVE (NEGATIVE); Nitrite Urine UA NEGATIVE (Negative); Occult Blood Urine UA 3+ (Negative); Protein Urine UA 2+ (Negative); Specific Gravity Urine UA 1.025 (1.000-1.035); Urobilinogen Urine UA 0.2 E.U./dL (0.2); pH Urine UA 5.5 (4.5-8.0)
[2025-02-28 14:13] LABS: Appearance Urine UA Slightly Cloudy
[2025-02-28 14:14] LABS: Culture Indicated Urine Cult Not Indicated
--- NOTE | 2025-02-28 14:52 | ED.WEAKNESS ---
HPI - Weakness General Chief complaint: Weakness Stated complaint: weakness/fall No thinners Time Seen by Provider: 02/28/25 12:01 Source: EMS Mode of arrival: EMS History of Present Illness HPI Narrative: This is an 84-year-old male brought in by ambulance with generalized weakness. History is provided by EMS patient and his who is present. Reportedly he was generally weak and ended up on the floor last night. His says that she left and with the floor when she went to bed was later able to get him up in the bed but today was generally weak and also went to the ground twice. His legs just give way. He does not have any hip pain he is not having chest or abdominal pain he is not having nausea or vomiting. He has not hit his head. He has not had any fevers shaking chills nausea vomiting or diarrhea recently. Patient indicates that he would wish to be full code. Related Data Home Medications ?Medication ?Instructions ?Recorded ?Confirmed atorvastatin 20 mg tablet (Lipitor) 20 mg PO QDAY ##0 12/29/15 03/30/24 cyanocobalamin (vitamin B-12) 1,000 mcg PO DAILY ##0 12/29/15 03/30/24 1,000 mcg tablet,extended release ferrous sulfate 325 mg (65 mg 325 mg PO DAILY 11/03/19 03/30/24 iron) tablet (Iron (ferrous sulfate)) NIFEDIPINE (NIFEDICAL XL) 30 mg PO TID #0 tabs 09/16/22 03/30/24 furosemide 20 mg tablet 20 mg PO DAILY PRN Edema 09/16/22 03/30/24 lisinopril 20 mg tablet 30 mg PO DAILY #0 tabs 09/16/22 03/30/24 cholecalciferol (vitamin D3) 125 125 mcg PO DAILY 09/18/22 03/30/24 mcg (5,000 unit) tablet clobetasol 0.05 %-calcipotriene ml topical 09/18/22 03/30/24 0.005 % topical solution potassium gluconate 595 mg (99 mg) 595 mg PO DAILY 09/18/22 03/30/24 tablet vit C 250 mg-vit E 90 mg-zinc 40 1 tab PO BID 09/18/22 03/30/24 mg-copper 1 [id number] capsule (PreserVision AREDS-2) amlodipine 5 mg tablet 5 mg PO DAILY 10/28/22 03/30/24 Allergies Allergy/AdvReac Type Severity Reaction Status Date / Time shellfish derived Allergy Severe ITCHY SOB Verified 02/28/25 11:39 metformin Allergy Mild Verified 02/28/25 11:39 bivalves Allergy Severe Anaphylaxis Uncoded 02/28/25 11:39 Patient History Medical History (Updated 02/28/25 @ 14:52 by Jonathon Santiago MD) Macular degeneration HLD (hyperlipidemia) GERD (gastroesophageal reflux disease) HTN (hypertension) Aortic stenosis Incomplete emptying of bladder Bladder outlet obstruction Nocturia History of tobacco use Lower urinary tract symptoms Heart murmur Sleep apnea treated with nocturnal BiPAP Diabetes mellitus Hypertension Surgical History (Updated 10/01/23 @ 11:32 by Tesfaye Higginbotham MD) H/O transurethral resection of prostate History of cataract surgery Family History Mother Hypertension High cholesterol Hearing impaired Social History household members: spouse Smoking Status: Never smoker alcohol intake: current Smoking Status: Never smoker alcohol intake frequency: 3 or more drinks per day Alcohol type: beer Exam Narrative Exam Narrative: Elderly male who is hard of hearing in no acute distress. Vital signs are reviewed Head is atraumatic Pupils are equal round and reactive extraocular movements are intact there is no facial droop or asymmetry oral mucosa is moist Neck is supple there is no tenderness of the cervical spine thoracic spine or lumbar spine. Lung sounds are normal Cardiac regular rhythm and rate no murmur rub or gallop Abdomen obese positive bowel sounds soft without appreciable tenderness. Hips are nontender to palpation he moves all 4 extremities spontaneously and equally. Skin is warm and dry without areas of breakdown. Initial Vital Signs Initial Vital Signs: Vital Signs Temperature 99.9 F H 02/28/25 11:45 Pulse Rate 75 02/28/25 11:45 Respiratory Rate 18 02/28/25 11:45 Blood Pressure 151/73 H 02/28/25 11:45 Pulse Oximetry 99 02/28/25 11:45 Oxygen Delivery Method Room Air 02/28/25 11:45 Course Orders Ordered: ED Orders 02/28/25 11:43 EKG-12 Lead Stat 02/28/25 11:55 CBC Auto Diff [Complete Blood Count AUTO DIFF] Stat CK [Creatine Kinase] Stat CMP [Comprehensive Metabolic Panel] Stat ETOH [Ethanol (ETOH)] Stat Troponin I Stat 02/28/25 12:01 Chest [XR chest 1V] Stat 02/28/25 13:32 UA Complete [Urinalysis and Microscopic] Stat 02/28/25 14:35 Trop I [Troponin I] Stat Sodium Chloride (Normal Saline 0.9%) 1,000 mls @ 1,000 mls/hr IV BOLUS ONE Stop: 02/28/25 15:44 Last Admin: 02/28/25 15:10 Dose: 1,000 mls/hr Documented By: NINO Vital Signs Vital signs: Vital Signs - 8 hr 02/28/25 11:45 02/28/25 11:46 02/28/25 12:00 Temperature 99.9 F H Pulse Rate 75 71 73 Respiratory Rate 18 24 Blood Pressure 151/73 H Pulse Oximetry 99 97 94 Oxygen Delivery Method Room Air 02/28/25 12:30 02/28/25 13:00 02/28/25 13:30 Temperature Pulse Rate 78 80 80 Respiratory Rate 19 22 Blood Pressure Pulse Oximetry 96 99 100 Oxygen Delivery Method 02/28/25 14:00 02/28/25 14:30 Temperature Pulse Rate 73 70 Respiratory Rate 21 23 Blood Pressure Pulse Oximetry 98 97 Oxygen Delivery Method MDM - Weakness Lab Data Lab results narrative: CBC with diff shows a mild anemia, on chemistries there is elevation in AST and ALT CK is also quite elevated. Creatinine elevated at 1.25. Urinalysis remarkable for occult blood consistent with rhabdomyolysis. Troponin elevated at point 078, this is downtrending. 02/28/25 11:55 02/28/25 11:55 Labs: Lab Results 02/28/25 02/28/25 Range/Units 11:55 13:32 WBC 9.3 (4.5-11.0) X10^3/uL RBC 2.82 L (4.5-5.9) X10^6/uL Hgb 10.6 L (13.5-17.5) g/dL Hct 29.5 L (41-53) % MCV 104.7 H (80-100) fL MCH 37.7 H (26-34) PG MCHC 36.0 (30-36) % RDW 12.7 (11.6-14.8) % Plt Count 155 (150-400) X10^3/uL Neut % (Auto) 90.7 H (50-75) % Lymph % (Auto) 3.3 L (25-40) % Cook % (Auto) 5.8 (3-14) % Eos % (Auto) 0.0 L (2-4) % Baso % (Auto) 0.2 (0-2) % Neut # (Auto) 8500 H (9893-1028) /uL Lymph # (Auto) 300 L (7630-9287) /uL Cook # (Auto) 500 (0-900) /uL Eos # (Auto) 0 (0-450) /uL Baso # (Auto) 0 (0-100) /uL Sodium 139 (137-145) mmol/L Potassium 3.5 (3.4-5.1) mmol/L Chloride 103 (98-107) mmol/L Carbon Dioxide 24 (22-32) mmol/L BUN 29 H (9-20) mg/dL Creatinine 1.24 (0.66-1.25) mg/dL Estimated GFR 58 L (>60) mL/min BUN/Creatinine Ratio 23.4 H (6-22) Glucose 106 H (70-99) mg/dL Calcium 9.0 (8.4-10.2) mg/dL Total Bilirubin 0.9 (0.2-1.3) mg/dL AST 587 H (17-59) IU/L ALT 107 H (<50) IU/L Alkaline Phosphatase 72 (38-126) U/L Total Creatine Kinase 03362 H (55-170) U/L Troponin I 0.078 H (0.01-0.034) ng/mL Total Protein 6.8 (6.3-8.2) g/dL Albumin 4.3 (3.5-5.0) g/dL Globulin 2.5 (1.7-4.1) g/dL Albumin/Globulin Ratio 1.7 (1.0-2.8) Urine Color Yellow Urine Appearance Slightly cloudy Urine pH 5.5 (4.5-8.0) Ur Specific [place] 1.025 (1.000-1.035) Urine Protein 2+ H (Negative) Urine Glucose (UA) 2+ H (Negative) g/dL Urine Ketones Negative (NEGATIVE) Urine Occult Blood 3+ H (Negative) Urine Nitrate Negative (Negative) Urine Bilirubin Negative (NEGATIVE) Urine Urobilinogen 0.2 (0.2) E.U./dL Ur Leukocyte Esterase Negative (NEGATIVE) Urine RBC 1-5/hpf (0-5/HPF) Urine WBC 1-5/hpf (0-5/HPF) Ur Squamous Epith Cells 0-1 /hpf (0-5/HPF) Uric Acid Crystals Few H (None) Urine Bacteria Occasional (0-1) (None) Granular Casts 0-1/lpf (None) Ur Culture Indicated? Cult not indicated Vol Urine Centrifuged 10ml (spun) Ethyl Alcohol < 10 (<10) mg/dL Imaging Data Chest x-ray: My Impression: I was unable to independently review the chest x-ray, on electronic medical record was not displaying Radiologist Impression: Per radiology, chest x-ray shows no acute findings. ECG Data Attestation: I personally reviewed and interpreted this ECG as follows: (Normal sinus rhythm at [address] segment changes) MDM Narrative Medical decision making narrative: 84-year-old man with generalized weakness. This is resulted in 3 recent falls and an extended time on the floor. While he does not appear to have any acute skin breakdown he has an elevated CK consistent with rhabdomyolysis. He is not having chest pain, does not have ischemic EKG changes, troponin is elevated this may be stress or demand related, at this point I think following it is appropriate. He does not appear to be acutely infected, exam and history do not suggest a traumatic injury or intracranial injury. He will be admitted to the hospitalist service, I have started IV fluids. Case discussed with hospitalist, Dr. Garnett who accepted this admission Discharge Plan Departure Patient Disposition: Admitted As Inpatient Clinical Impression: General weakness Rhabdomyolysis Qualifiers: Rhabdomyolysis type: traumatic Encounter type: initial encounter Qualified Code(s): T79.6XXA - Traumatic ischemia of muscle, initial encounter Admit Date/Time: 02/28/25 14:52 Admit Provider: Lee Garnett
[2025-02-28 15:00] LABS: Ethanol (ETOH) < 10 mg/dL (<10)
[2025-02-28] MEDS: SODIUM CHLORIDE 0.9% 1,000 ML 1000 ML IV (15:10)
[2025-02-28 15:15] LABS: Troponin I 0.078 ng/mL (0.01-0.034)
--- NOTE | 2025-02-28 15:25 | PM.HP.1 ---
History of Present Illness History of Present Illness Date Patient Seen: 02/28/25 Chief complaint: weakness/fall No thinners Narrative: Patient was a 84-year-old male with a history of aortic stenosis who presents with progressive fatigue and weakness. He apparently fell to the ground last night was stuck on the floor for about 4 hours. He was ultimately able to get up and was brought to the ER today. He was found to have evidence of rhabdomyolysis with elevated CK, and pigmented in his urine. The patient did not have acute kidney injury. He notes that he was become weak over the last 7-10 days and that the weakness has global in arms and legs. Denies any edema, dyspnea, orthopnea. He has known aortic stenosis and the possibility of a valve replacement has been mentioned in the past. No recent chest pain, fevers, chills, cough, URI symptoms. He does have chronic rectal urgency. He denies any hematuria, or dysuria. [facility] Medical History Macular degeneration HLD (hyperlipidemia) GERD (gastroesophageal reflux disease) HTN (hypertension) Aortic stenosis Incomplete emptying of bladder Bladder outlet obstruction Nocturia History of tobacco use Lower urinary tract symptoms Heart murmur Sleep apnea treated with nocturnal BiPAP Diabetes mellitus Hypertension Surgical History H/O transurethral resection of prostate History of cataract surgery Family History Mother Hypertension High cholesterol Hearing impaired Social History household members: spouse Smoking Status: Never smoker alcohol intake: current Meds Home Medications and Allergies Home Medications ?Medication ?Instructions ?Recorded ?Confirmed ?Type atorvastatin 20 mg tablet (Lipitor) 20 mg PO QDAY ##0 12/29/15 03/30/24 History cyanocobalamin (vitamin B-12) 1,000 mcg PO DAILY ##0 12/29/15 03/30/24 History 1,000 mcg tablet,extended release ferrous sulfate 325 mg (65 mg 325 mg PO DAILY 11/03/19 03/30/24 History iron) tablet (Iron (ferrous sulfate)) NIFEDIPINE (NIFEDICAL XL) 30 mg PO TID #0 tabs 09/16/22 03/30/24 History furosemide 20 mg tablet 20 mg PO DAILY PRN Edema 09/16/22 03/30/24 History lisinopril 20 mg tablet 30 mg PO DAILY #0 tabs 09/16/22 03/30/24 History cholecalciferol (vitamin D3) 125 125 mcg PO DAILY 09/18/22 03/30/24 History mcg (5,000 unit) tablet clobetasol 0.05 %-calcipotriene ml topical 09/18/22 03/30/24 History 0.005 % topical solution potassium gluconate 595 mg (99 mg) 595 mg PO DAILY 09/18/22 03/30/24 History tablet vit C 250 mg-vit E 90 mg-zinc 40 1 tab PO BID 09/18/22 03/30/24 History mg-copper 1 od-vsuvsu-aymbap capsule (PreserVision AREDS-2) amlodipine 5 mg tablet 5 mg PO DAILY 10/28/22 03/30/24 History Allergies Allergy/AdvReac Type Severity Reaction Status Date / Time shellfish derived Allergy Severe ITCHY SOB Verified 02/28/25 11:39 metformin Allergy Mild Verified 02/28/25 11:39 bivalves Allergy Severe Anaphylaxis Uncoded 02/28/25 11:39 Review of Systems Review of Systems Narrative: All else reviewed and otherwise unremarkable except as noted in the history and physical. Exam Vital Signs (past 8 hours): - 02/28/25 11:45 02/28/25 11:46 02/28/25 12:00 Temperature 99.9 F H Pulse Rate 75 71 73 Respiratory Rate 18 24 Blood Pressure 151/73 H Pulse Oximetry 99 97 94 Oxygen Delivery Method Room Air 02/28/25 12:30 02/28/25 13:00 02/28/25 13:30 Temperature Pulse Rate 78 80 80 Respiratory Rate 19 22 Blood Pressure Pulse Oximetry 96 99 100 Oxygen Delivery Method 02/28/25 14:00 02/28/25 14:30 02/28/25 14:41 Temperature Pulse Rate 73 70 68 Respiratory Rate 21 23 19 Blood Pressure Pulse Oximetry 98 97 99 Oxygen Delivery Method 02/28/25 14:41 02/28/25 15:00 02/28/25 15:00 Temperature Pulse Rate 70 Respiratory Rate 22 Blood Pressure 158/70 H 147/67 H Pulse Oximetry 98 Oxygen Delivery Method Room Air Oxygen Delivery Method Room Air Narrative Exam Narrative: NAD, alert and oriented, fluent speech, calm. Normocephalic skull, EOMI, anicteric sclera, symmetric pupils. Oropharynx unremarkable, no droop. Neck supple, midline trachea, no adenopathy. Lungs clear, normal rate and effort. Heart regular, systolic murmur, and no gallop or rub. Abdomen is soft, non distended and non tender. Extremities are free of edema. Skin is free of rash or lesions. Joints are not swollen or deformed. Judgment appears to be normal. Hard of hearing. Objective ECG Impression: Intervals [place] Rate: 73 P: 82 ND: 186 QRS: -8 QRSD: 78 T: 47 QT: 392 QTc: 431 Interpretive Statements Normal sinus rhythm Nonspecific ST abnormality Imaging Chest x-ray: Radiologist's impression: No acute cardiopulmonary pathology. Labs 02/28/25 11:55 02/28/25 11:55 Labs: Laboratory Results - last 24 hr 02/28/25 02/28/25 02/28/25 11:55 13:32 14:35 WBC 9.3 RBC 2.82 L Hgb 10.6 L Hct 29.5 L MCV 104.7 H MCH 37.7 H MCHC 36.0 RDW 12.7 Plt Count 155 Neut % (Auto) 90.7 H Lymph % (Auto) 3.3 L [place] % (Auto) 5.8 Eos % (Auto) 0.0 L Baso % (Auto) 0.2 Neut # (Auto) 8500 H Lymph # (Auto) 300 L [place] # (Auto) 500 Eos # (Auto) 0 Baso # (Auto) 0 Sodium 139 Potassium 3.5 Chloride 103 Carbon Dioxide 24 BUN 29 H Creatinine 1.24 Estimated GFR 58 L BUN/Creatinine Ratio 23.4 H Glucose 106 H Calcium 9.0 Total Bilirubin 0.9 AST 587 H ALT 107 H Alkaline Phosphatase 72 Total Creatine Kinase 36927 H Troponin I 0.078 H 0.078 H Total Protein 6.8 Albumin 4.3 Globulin 2.5 Albumin/Globulin Ratio 1.7 Urine Color Yellow Urine Appearance Slightly cloudy Urine pH 5.5 Ur Specific [place] 1.025 Urine Protein 2+ H Urine Glucose (UA) 2+ H Urine Ketones Negative Urine Occult Blood 3+ H Urine Nitrate Negative Urine Bilirubin Negative Urine Urobilinogen 0.2 Ur Leukocyte Esterase Negative Urine RBC 1-5/hpf Urine WBC 1-5/hpf Ur Squamous Epith Cells 0-1 /hpf Uric Acid Crystals Few H Urine Bacteria Occasional (0-1) Granular Casts 0-1/lpf Ur Culture Indicated? Cult not indicated Vol Urine Centrifuged 10ml (spun) Ethyl Alcohol < 10 Assessment & Plan Assessment & Plan narrative: 1. Weakness, active. 2. Ground level fall with sustained downtime, active. 3. Traumatic rhabdomyolysis, active. 4. HLD, stable. 5. Hypertension, stable. 6. Aortic stenosis, stable. 7. BPH, stable. 8. Dm 2, stable. 9. Aortic stenosis with concern for progressive valvular disease with current symptoms. PLAN: -IV fluids and monitor renal function. -PT and OT assessments -continue usual diabetes medication. -echo to rule out critical tomorrow. Full resuscitation Anticipate at least 2 midnights in the hospital, supports inpatient status. Time-Based Coding :: 35 min spent with patient and on the chart (including review of chart, obtaining history, exam, reviewing outside data, placing orders, documenting exam and treatment plan, and counseling patient) on 02/28. Quality MIPS - Admit I confirm the patient?s Advance Care Plan is present, Code status is documented, Surrogate decision maker is in patient?s record [If Yes, STOP here]: Yes MIPS - Meds 'Current medications' to include all prescriptions, cliz-zox-yhfrfcw products, herbals, cannabis/cannabidiol products, and vitamin/mineral/dietary (nutritional) supplements. I have utilized all available resources to obtain, update, or review the patient?s current medications. [If Yes, STOP here]: Yes
--- NOTE | 2025-02-28 17:24 | DI.ECHO.S_ITS ---
[facility] : : [id number] : : [place] : : [id number] : : Phone: [phone] Echocardiogram Report + + :Name: WENDY SMALL Study Date: 03/01/2025 Height: 71 in : :[facility] ReadingLocation: Weight: 192 lb : : Gender: Male BSA: 2.1 m2 : :: 1940 Age: 84 yrs BP: 134/44 mmHg: :Reason For Study: AORTIC STENOSIS : :Ordering Physician: ROSS, : :TORITO Bryant Performed By: Armand Chandler : :Referring: TORITO HAWKINS : + + Interpretation Summary Normal sinus rhythm. Normal LV size; mild-moderate concentric LVH; normal wall motion and LV systolic function. EF is 60-65%. Mild LA enlargement; otherwise normal chamber sizes. Aortic valve is a trileaflet structure with moderately thickened and calcified leaflets; there is moderate aortic stenosis and regurgitation. Moderately dilated ascending aorta on personal review measuring 4.4 cm in diameter. Consider CT chest angiogram to confirm aorta diameter. Compared to prior echo 10/25/2021 aortic stenosis progressed; peak velocity across aortic valve cat from 2.6 to 3 m/sec. Procedure: A two-dimensional transthoracic echocardiogram with color flow and Doppler was performed. The study quality was technically good. Comparison is made with the echocardiogram of 10/25/2021. The patient was in normal sinus rhythm during the exam. Left Ventricle: The left ventricle is normal in size. Left ventricular wall thickness is mild-moderately increased. There is no ventricular septal defect visualized. The ejection fraction is estimated to be 60-65%. There are no focal wall motion abnormalities. Diastolic parameters suggest probable normal left ventricular diastolic function and normal filling pressures. Right Ventricle: The right ventricle is normal in size and function. Atria: The left atrium is mildly dilated. The right atrium is mildly dilated. The right atrium is normal in size. There is no Doppler evidence for an interatrial shunt. Mitral Valve: There is mild mitral annular calcification. The mitral valve leaflets are mildly calcified. There is trace mitral regurgitation. Aortic Valve: The aortic valve is trileaflet. The aortic valve is moderately calcified. There is moderate aortic stenosis. The peak aortic velocity is 3.02 m/sec. The aortic valve mean gradient is 20.7 mmHg. The calculated aortic valve area is 1.5 cm2. There is moderate aortic regurgitation. Tricuspid Valve: The tricuspid valve leaflets are thin and pliable. There is mild tricuspid regurgitation. The right ventricular systolic pressure is estimated to be at least 40 mmHg based on an estimated right atrial pressure of 8 mm Hg. Pulmonic Valve: The pulmonic valve is not well seen, but is grossly normal. There is no pulmonic valvular regurgitation. Great Vessels: The aortic root is normal size. The ascending aorta is moderate-severely enlarged. The pulmonary artery is not well visualized, but is probably normal size. The IVC is dilated (diameter is greater than 2.1 cm) yet it collapses greater than 50% with a sniff. This suggests a right atrial pressure of 8 mm Hg. Pericardium/ Pleura There is no pericardial effusion. There is no pleural effusion. MMode/2D Measurements & Calculations LVIDd: 4.2 cm LVOT diam: 2.3 cm LVIDs: 2.8 cm Ao root diam: 3.4 cm FS: 34.5 % asc Aorta Diam: 5.2 cm EPSS: 0.58 cm IVSd: 1.3 cm LVPWd: 1.3 cm LV khoury. diameter/BSA (cm/m^2): 2.0 LV sys. diameter/BSA (cm/m^2): 1.3 LA A2 area: 23.7 cm2 RA long axis: 6.2 cm LA A4 area: 26.0 cm2 RA area: 20.2 cm2 LA length (vol): 7.2 cm RA vol: 55.6 ml LA vol: 73.1 ml RA : 26.9 ml/m2 LA vol index: 35.4 ml/m2 IVC diam: 2.5 cm RVD1 (basal): 3.3 cm RVD2 (mid): 2.4 cm TAPSE: 2.5 cm Doppler Measurements & Calculations Ao V2 max: 301.8 cm/sec LVOT Max Yuriy: 110.3 cm/sec Ao V2 mean: 214.7 cm/sec LV V1 max P.9 mmHg Ao max P.4 mmHg LV V1 VTI: 25.8 cm Ao mean P.7 mmHg ROEL(I,D): 1.6 cm2 Ao V2 VTI: 67.8 cm ROEL(V,D): 1.5 cm2 sev ratio: 0.38 ROEL indexed to BSA (cm^2/m^2): 0.75 AI P1/2t: 414.5 msec AI dec slope: 287.4 cm/sec2 MV E max yuriy: 126.6 cm/sec TR max yuriy: 284.4 cm/sec MV A max yuriy: 68.1 cm/sec TR max P.4 mmHg MV E/A: 1.9 PA V2 max: 116.4 cm/sec Med Peak E' Yuriy: 6.3 cm/sec PA V2 mean: 88.7 cm/sec E/E' med: 20.2 PA mean P.3 mmHg Lat Peak E' Yuriy: 7.0 cm/sec PA pr(Accel): 37.9 mmHg E/E' lat: 18.1 E/e' average: 19.1 MV dec time: 0.25 sec SV(LVOT): 105.4 ml Electronically signed by: Maya Henao M.D. on Reading Physician:03/01/2025 08:40 AM
--- NOTE | 2025-02-28 18:20 | PC.NURSE ---
Patient arrived from ED late this afternoon. He is A&OX4, but extrememly hard of hearing. 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 He states he's unable to slide himself from gurney to bed and slide board is used. at bedside supportive brought home meds and med list. Patient is able to eat dinner. His own CGM read 96. He denies pain, SOB, CP. MD evaluated patient. Placed on Telemetry. He voids in urinal and uses bed quispe for large BM. Small scabs to shins noted, and L great toenail removed by podiatry recently ANA.
[2025-02-28] MEDS: SODIUM CHLORIDE 0.9% 1,000 ML 50 ML IV (18:25)
--- NOTE | 2025-02-28 19:11 | PC.NURSE ---
Pt with tremors this evening after dinner temp 97.9 but he reports feeling chilled all day MD notified, and UCX and BCX x2 ordered. Of note Great toenail on L foot removed x 5 days ago [employer], no drainage, swelling or redness.
[2025-02-28] MEDS: VIT C/E/ZN/COPPR/LUTEIN/ZEAXAN CAPSULE 1 CAP PO (21:21)
[2025-02-28] MEDS: HEPARIN 5,000 UNIT/ML VIAL 5000 UNIT SUBCUT (21:22)
[2025-02-28] MEDS: INSULIN NPH 100 UNIT/ML 10ML VIAL 15 UNIT SUBCUT (21:23)
[2025-03-01] VITALS (11 sets, daily range): BP systolic 120–150; BP diastolic 35–52; PULSE 63–87; RESP 18–26; TEMP 36.1–36.6; O2SAT 95–98
[2025-03-01 04:19] LABS: Appearance Urine UA CLEAR; Bilirubin Urine UA NEGATIVE (NEGATIVE); Color Urine UA YELLOW; Glucose Urine UA 3+ g/dL (Negative); Ketones Urine UA NEGATIVE (NEGATIVE); Leukocyte Esterase Urine UA NEGATIVE (NEGATIVE); Nitrite Urine UA NEGATIVE (Negative); Occult Blood Urine UA 2+ (Negative); Protein Urine UA TRACE (Negative); Specific Gravity Urine UA 1.025 (1.000-1.035); Urobilinogen Urine UA 0.2 E.U./dL (0.2); pH Urine UA 5.5 (4.5-8.0)
[2025-03-01 04:33] LABS: Culture Indicated Urine Cult Not Indicated
[2025-03-01 05:22] LABS: Add Manual Diff / Slide Review NO; Hematocrit 27.2 % (41-53); Hemoglobin 9.8 g/dL (13.5-17.5); Lymphocytes Absolute Auto 800 /uL (1100-4500); Mean Corpuscular HGB Conc 36.0 % (30-36); Mean Corpuscular Hemoglobin 37.5 PG (26-34); Mean Corpuscular Volume 104.3 fL (80-100); Platelet Count 131 X10^3/uL (150-400)
[2025-03-01 05:31] LABS: Blood Urea Nitrogen 24 mg/dL (9-20); Calcium 8.4 mg/dL (8.4-10.2); Carbon Dioxide 24 mmol/L (22-32); Chloride 102 mmol/L (98-107); Estimated Glomerular Filt Rate > 60 mL/min (>60); Glucose 83 mg/dL (70-99); HEMOLYSIS < 15 (0-50); Potassium 3.4 mmol/L (3.4-5.1); Sodium 136 mmol/L (137-145)
[2025-03-01 05:44] LABS: Troponin I 0.063 ng/mL (0.01-0.034)
[2025-03-01 05:59] LABS: Creatine Kinase 14147 U/L (55-170)
[2025-03-01] MEDS: PANTOPRAZOLE DR 40 MG TABLET PO (06:15)
--- NOTE | 2025-03-01 07:40 | P.PN_ITS ---
Subjective Subjective Interval history: Summary: Patient was a 84-year-old male with a history of aortic stenosis who presents with progressive fatigue and weakness. He apparently fell to the ground last night was stuck on the floor for about 4 hours. He was ultimately able to get up and was brought to the ER today. He was found to have evidence of rhabdomyolysis with elevated CK, and pigmented in his urine. The patient did not have acute kidney injury. He notes that he was become weak over the last 7- 10 days and that the weakness has global in arms and legs. Denies any edema, dyspnea, orthopnea. He has known aortic stenosis and the possibility of a valve replacement has been mentioned in the past. No recent chest pain, fevers, chills, cough, URI symptoms. He does have chronic rectal urgency. He denies any hematuria, or dysuria. S: No chest pain or dyspnea. He remains weak. Therapy will see him this morning. Overnight events: Patient had a Rice placed because of persistent urinary incontinence which is chronic. He was followed by Dr. Harding of [facility]. He does have a history of a cardiac stent as well as his known aortic stenosis. O: VSS NAD, alert and oriented. Fluent speech. Lungs are clear, normal rate and effort. Heart is regular, no murmur gallop or rub. Abdomen is soft, non distended. Extremities are free of edema. ECG Impression: Intervals [place] Rate: 73 P: 82 [place]: 186 QRS: -8 QRSD: 78 T: 47 QT: 392 QTc: 431 Interpretive Statements Normal sinus rhythm Nonspecific ST abnormality Imaging Chest x-ray: Radiologist's impression: No acute cardiopulmonary pathology. A/P: 1. Weakness, active. 2. Ground level fall with sustained downtime, active. 3. Traumatic rhabdomyolysis, active. 4. HLD, stable. 5. Hypertension, stable. 6. Aortic stenosis, stable. 7. BPH, stable. 8. Dm 2, stable. 9. Aortic stenosis with concern for progressive valvular disease with current symptoms. PLAN: -IV fluids and monitor renal function. -PT and OT assessments -continue usual diabetes medication. ECHO: Normal sinus rhythm. Normal LV size; mild-moderate concentric LVH; normal wall motion and LV systolic function. EF is 60-65%. Mild LA enlargement; otherwise normal chamber sizes. Aortic valve is a trileaflet structure with moderately thickened and calcified leaflets; there is moderate aortic stenosis and regurgitation. Moderately dilated ascending aorta on personal review measuring 4.4 cm in diameter. Consider CT chest angiogram to confirm aorta diameter. Compared to prior echo 10/25/2021 aortic stenosis progressed; peak velocity across aortic valve cat from 2.6 to 3 m/sec. Full resuscitation Anticipate at least 2 midnights in the hospital, supports inpatient status. Exam Vital Signs (past 8 hours): - 02/28/25 23:47 03/01/25 01:00 03/01/25 05:00 Temperature 97.8 F 98 F 97.6 F Pulse Rate 75 78 69 Respiratory Rate 16 18 18 Blood Pressure 138/46 L 128/52 L 134/44 L Pulse Oximetry 97 95 Oxygen Flow Rate 0 0 Oxygen Delivery Method Room Air Oxygen Flow Rate 0 Objective Labs 03/01/25 04:50 03/01/25 04:50 Labs: Laboratory Results - last 24 hr 02/28/25 02/28/25 02/28/25 11:55 13:32 14:35 WBC 9.3 RBC 2.82 L Hgb 10.6 L Hct 29.5 L MCV 104.7 H MCH 37.7 H MCHC 36.0 RDW 12.7 Plt Count 155 Neut % (Auto) 90.7 H Lymph % (Auto) 3.3 L [place] % (Auto) 5.8 Eos % (Auto) 0.0 L Baso % (Auto) 0.2 Neut # (Auto) 8500 H Lymph # (Auto) 300 L [place] # (Auto) 500 Eos # (Auto) 0 Baso # (Auto) 0 Sodium 139 Potassium 3.5 Chloride 103 Carbon Dioxide 24 BUN 29 H Creatinine 1.24 Estimated GFR 58 L BUN/Creatinine Ratio 23.4 H Glucose 106 H POC Whole Bld Glucose Calcium 9.0 Total Bilirubin 0.9 AST 587 H ALT 107 H Alkaline Phosphatase 72 Total Creatine Kinase 10664 H Troponin I 0.078 H 0.078 H Total Protein 6.8 Albumin 4.3 Globulin 2.5 Albumin/Globulin Ratio 1.7 Urine Color Yellow Urine Appearance Slightly cloudy Urine pH 5.5 Ur Specific [place] 1.025 Urine Protein 2+ H Urine Glucose (UA) 2+ H Urine Ketones Negative Urine Occult Blood 3+ H Urine Nitrate Negative Urine Bilirubin Negative Urine Urobilinogen 0.2 Ur Leukocyte Esterase Negative Urine RBC 1-5/hpf Urine WBC 1-5/hpf Ur Squamous Epith Cells 0-1 /hpf Calcium Oxalate Crystal Uric Acid Crystals Few H Amorphous Sediment Urine Bacteria Occasional (0-1) Hyaline Casts Granular Casts 0-1/lpf Urine Mucus Ur Culture Indicated? Cult not indicated Vol Urine Centrifuged 10ml (spun) Ethyl Alcohol < 10 02/28/25 02/28/25 03/01/25 20:14 23:41 01:50 WBC RBC Hgb Hct MCV MCH MCHC RDW Plt Count Neut % (Auto) Lymph % (Auto) [place] % (Auto) Eos % (Auto) Baso % (Auto) Neut # (Auto) Lymph # (Auto) [place] # (Auto) Eos # (Auto) Baso # (Auto) Sodium Potassium Chloride Carbon Dioxide BUN Creatinine Estimated GFR BUN/Creatinine Ratio Glucose POC Whole Bld Glucose 132 H 179 H Calcium Total Bilirubin AST ALT Alkaline Phosphatase Total Creatine Kinase Troponin I Total Protein Albumin Globulin Albumin/Globulin Ratio Urine Color Yellow Urine Appearance Clear Urine pH 5.5 Ur Specific [place] 1.025 Urine Protein Trace H Urine Glucose (UA) 3+ H Urine Ketones Negative Urine Occult Blood 2+ H Urine Nitrate Negative Urine Bilirubin Negative Urine Urobilinogen 0.2 Ur Leukocyte Esterase Negative Urine RBC 1-5/hpf Urine WBC 1-5/hpf Ur Squamous Epith Cells 0-1 /hpf Calcium Oxalate Crystal Occasional H Uric Acid Crystals Moderate H Amorphous Sediment 1+ Urine Bacteria Occasional (0-1) Hyaline Casts 0-1/lpf Granular Casts Urine Mucus 1+ H Ur Culture Indicated? Cult not indicated Vol Urine Centrifuged 10ml (spun) Ethyl Alcohol 03/01/25 03/01/25 04:50 06:19 WBC 7.1 RBC 2.61 L Hgb 9.8 L Hct 27.2 L MCV 104.3 H MCH 37.5 H MCHC 36.0 RDW 12.5 Plt Count 131 L Neut % (Auto) 78.5 H Lymph % (Auto) 11.3 L [place] % (Auto) 9.5 Eos % (Auto) 0.3 L Baso % (Auto) 0.4 Neut # (Auto) 5500 Lymph # (Auto) 800 L [place] # (Auto) 700 Eos # (Auto) 0 Baso # (Auto) 0 Sodium 136 L Potassium 3.4 Chloride 102 Carbon Dioxide 24 BUN 24 H Creatinine 1.06 Estimated GFR > 60 BUN/Creatinine Ratio 22.6 H Glucose 83 POC Whole Bld Glucose 85 Calcium 8.4 Total Bilirubin AST ALT Alkaline Phosphatase Total Creatine Kinase 06257 H D Troponin I 0.063 H Total Protein Albumin Globulin Albumin/Globulin Ratio Urine Color Urine Appearance Urine pH Ur Specific [place] Urine Protein Urine Glucose (UA) Urine Ketones Urine Occult Blood Urine Nitrate Urine Bilirubin Urine Urobilinogen Ur Leukocyte Esterase Urine RBC Urine WBC Ur Squamous Epith Cells Calcium Oxalate Crystal Uric Acid Crystals Amorphous Sediment Urine Bacteria Hyaline Casts Granular Casts Urine Mucus Ur Culture Indicated? Vol Urine Centrifuged Ethyl Alcohol PFSH Medical History Macular degeneration HLD (hyperlipidemia) GERD (gastroesophageal reflux disease) HTN (hypertension) Aortic stenosis Incomplete emptying of bladder Bladder outlet obstruction Nocturia History of tobacco use Lower urinary tract symptoms Heart murmur Sleep apnea treated with nocturnal BiPAP Diabetes mellitus Hypertension Surgical History H/O transurethral resection of prostate History of cataract surgery Family History Mother Hypertension High cholesterol Hearing impaired Social History household members: spouse Smoking Status: Never smoker alcohol intake: current Assessment & Plan Time-Based Coding :: [TOTAL MINUTES] spent with patient and on the chart (including review of chart, obtaining history, exam, reviewing outside data, placing orders, documenting exam and treatment plan, and counseling patient) on [DATE].
[2025-03-01] MEDS: VIT C/E/ZN/COPPR/LUTEIN/ZEAXAN CAPSULE 1 CAP PO ×2 (09:24→21:09)
[2025-03-01] MEDS: HEPARIN 5,000 UNIT/ML VIAL 5000 UNIT SUBCUT ×2 (09:24→21:00)
[2025-03-01] MEDS: SODIUM CHLORIDE 0.9% 1,000 ML 50 ML IV (10:03)
[2025-03-01] MEDS: INSULIN LISPRO 100 UNIT/ML 3ML VIAL SUBCUT ×3 (10:13→21:24)
[2025-03-01] MEDS: CHLORTHALIDONE 25 MG TABLET PO (12:16)
[2025-03-01] MEDS: ATORVASTATIN 20 MG TABLET PO (12:16)
[2025-03-01] MEDS: FERROUS SULFATE 325 MG TABLET PO (12:17)
--- NOTE | 2025-03-01 12:35 | OT.IP.EVAL ---
Current Diagnoses Traumatic ischemia of muscle, initial encounter (02/28/25) Past Medical History (Last Reviewed 02/28/25 @ 17:28 by Lee Garnett MD) Aortic stenosis Bladder outlet obstruction Diabetes mellitus GERD (gastroesophageal reflux disease) Heart murmur History of tobacco use HLD (hyperlipidemia) HTN (hypertension) Hypertension Incomplete emptying of bladder Lower urinary tract symptoms Macular degeneration Nocturia Sleep apnea treated with nocturnal BiPAP Surgical History (Last Reviewed 02/28/25 @ 17:28 by Lee Garnett MD) H/O transurethral resection of prostate History of cataract surgery Occupational Therapy Inpatient Evaluation/Re-Eval M1 OT IP Prior Functional Status Start: 03/01/25 13:18 Freq: Status: Active Protocol: Document 03/01/25 13:18 [facility] (Rec: 03/01/25 13:32 [facility] Desktop) Medical Review Prior Functional Status Mobility and Gait Pt states over the past month has gotten weaker, but more progressively in the past 1 week and unable to walk. Activities of Daily Pt states in the past week not able to care for himself Living and IADL's . Social History Household Members spouse Living Arrangements House Number of Floors ( One Floor Floors) Number of Stairs To NO steps to enter. Enter/Railing? Home Environment Standard Height Toilet,High Toilet,Walk in Shower Home Equipment Front Wheel Walker,Four Wheel Walker,Straight Cane,Hand Held Shower,Grab Bars Near Toilet M2 OT-IP Current Condition Start: 03/01/25 13:18 Freq: Status: Active Protocol: Document 03/01/25 13:18 [facility] (Rec: 03/01/25 13:32 [facility] Desktop) Occupational Therapy Current Condition Current Condition Evaluation Date 03/01/25 Treatment Diagnosis Rhabdomyolysis, generalized weakness, s/p GLF Diagnosis Onset Date 02/28/25 M3 OT- IP Subjective and Pain Start: 03/01/25 13:18 Freq: Status: Active Protocol: Document 03/01/25 13:18 [facility] (Rec: 03/01/25 13:32 [facility] Desktop) OT- Subjective Occupational Therapy Visit Type Type Initial Evaluation Visit Start Time 12:00 Visit Stop Time 12:35 Occupational Therapy Visit Comments Patient Comments Pt agreed to get up after much encouragement. Patient/Caregiver TO get better. Goals OT Pain Assessment Pain When Pain Assessed During Mobility Pain Present Pain Present Pain Reported Location back Pain Behaviors Facial Grimacing,Holding Area M4 OT- IP ADL's Start: 03/01/25 13:18 Freq: Status: Active Protocol: Document 03/01/25 13:18 [facility] (Rec: 03/01/25 13:32 [facility] Desktop) OT OUP-[place] Comments OT Self-Feeding Not at meal time. Comments OT ADL-Grooming Comments OT Grooming Comments Pt refused. OT ADL-Dressing General Eval Lower Body Dressing Total Assistance Ability Areas Needing Socks Assistance Comments OT Dressing Comments Pt unable to reach his feet at this time and total assist for socks at this time. OT ADL-Toileting General Evaluation Toileting Ability Total Assistance Comments OT Toileting External grady in place. Comments OT ADL-Bathing Comments OT Bathing Comments Pt will need assist. M5 OT- IP IADL's Start: 03/01/25 13:18 Freq: Status: Active Protocol: Document 03/01/25 13:18 [facility] (Rec: 03/01/25 13:32 [facility] Desktop) OT-Instrumental Activities of Daily Living Meal Preparation Meal Preparation Pt will need assist. 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 Comments M6 OT- IP Functional Cognition Start: 03/01/25 13:18 Freq: Status: Active Protocol: Document 03/01/25 13:18 [facility] (Rec: 03/01/25 13:32 [facility] Desktop) Cognitive Factors Limiting Selfcare Function Cognitive Ability Level of Alertness Alert Patient Orientation Name,Age,Birthday,Month,Date,Year,Day of Week,Place, Situation Attention Span Capable of Focused Attention,Capable of Sustained Ability Attention Ability to Follow Able to Follow One Step Commands Commands Cognitive Comments Cognitive Assessment Pt able to follow command but needing encouragement. Pt Comments would benefit from SLUMS. OT- Vision and Hearing OT- Vision Assessment Vision Assessment Left eye not good per pt, failed cataract surgery. Comments M7 OT- IP Mobility and Balance Start: 03/01/25 13:18 Freq: Status: Active Protocol: Document 03/01/25 13:18 [facility] (Rec: 03/01/25 13:32 [facility] Desktop) OT- Bed Mobility Assessment Supine to Sit Supine to Sit Assist Moderate Assistance OT-Transfer Assessment Sit to and From Stand Sit to and from Contact Guard Assistance,Minimal Assistance,Moderate Stand Assistance Transfers Transfer Ability Contact Guard Assistance Technique Transfer Destination Bed,Chair Transfer Technique Stand Step Pivot Devices Transfer Assistive Gait Belt,Front Wheeled Walker Devices Comments Mobility Comments MODA to get out of bed and encouragement to do as much as pt can. CGA to stand and transfer with FWW. MODA to help lower down due to stiffness in his back. OT- Balance Assessment Sitting Balance and Reactions Static Sitting Good Balance Ability Dynamic Sitting Good Balance Ability Standing Balance and Reactions Static Standing Fair Balance Ability Dynamic Standing Fair Balance Ability M8 OT- IP Objective Assessments Start: 03/01/25 13:18 Freq: Status: Active Protocol: Document 03/01/25 13:18 [facility] (Rec: 03/01/25 13:32 [facility] Desktop) OT Gross Range of Motion Upper Extremity Range of Motion ROM Impairments grossly WFL OT Strength Comments Strength Comments grossly WFL M9 OT- IP Assessment and Plan Start: 03/01/25 13:18 Freq: Status: Active Protocol: Document 03/01/25 13:18 [facility] (Rec: 03/01/25 13:32 [facility] Desktop) OT Summary Assessment and Plan Potential Rehabilitation Good Potential Analytic Complexity High at Evaluation Summary OT Impairments Pain,Balance,Functional Mobility,Self-Feeding,Grooming, Dressing,Toileting,Bathing,Toilet Transfers,Shower Transfers,Activity Tolerance Progress Towards Slow Progress due to Pain,Slow Progress due to Medical Goals Issues,Slow Progress due to Activity Tolerance Assessment Summary Pt High complexity as having left toe infection, Rhado, and generalized weakness. Pt at this time would benefit from skilled rehab to work on getting back to baseline of completely independent with all ADL and mobility needs without a device. Goals Self-Feeding Goal Independent Grooming Goal Independent Dressing Goal Independent Toileting Goal Independent Bathing Goal Independent Toilet Transfer Goal Independent Shower Transfer Goal Independent Days to Meet Goals 20 Frequency of Treatment Other frequency 5x/week Treatment Plan OT Treatment Plan ADL Training,Functional Mobility,Patient/Family Education,Discharge Planning Discharge Recommendations OT Discharge SNF Rehab Recommendations Transportation Needs Private Vehicle,Wheelchair/Cabulance at Discharge
--- NOTE | 2025-03-01 12:38 | PT.IIE ---
Current Diagnoses Traumatic ischemia of muscle, initial encounter (02/28/25) Surgical History (Last Reviewed 02/28/25 @ 17:28 by Lee Garnett MD) H/O transurethral resection of prostate History of cataract surgery Medical History (Last Reviewed 02/28/25 @ 17:28 by Lee Garnett MD) Aortic stenosis Bladder outlet obstruction Diabetes mellitus GERD (gastroesophageal reflux disease) Heart murmur History of tobacco use HLD (hyperlipidemia) HTN (hypertension) Hypertension Incomplete emptying of bladder Lower urinary tract symptoms Macular degeneration Nocturia Sleep apnea treated with nocturnal BiPAP Physical Therapy Inpatient Evaluation/Re-Eval M1 PT IP Prior Functional Status Start: 03/01/25 13:19 Freq: NEEDED Status: Active Protocol: Document 03/01/25 12:38 [facility] (Rec: 03/01/25 13:41 [facility] Desktop) Medical Review Prior Functional Status Medical History Yes Reviewed Diet/Fluid Regular Consistency Communication glasses when driving, cochlear implant, 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 He reports gradually getting weaker for about a month. Severe weakness for about a week before this admission. He was exercising with Physical Therapy and a product trainer but was not getting better and was very sore. Activities of Daily Independent. Drives. Stands for showers. Severe urgency Living and IADL's when urinates with incontinence. Prior Functional lives in 55+ community with accessible house, wide Level (Other details doorways ) sleeps with CPAP at home Social History Household Members spouse Living Arrangements House Number of Floors ( One Floor Floors) Number of Stairs To none Enter/Railing? Home Environment Standard Height Toilet,High Toilet,Walk in Shower, Narrow Doors Home Equipment Front Wheel Walker,Four Wheel Walker,Straight Cane,Hand Held Shower Employment Status Retired Additional Social His is independent and drives History Comment M2 PT-IP Current Condition Start: 03/01/25 13:19 Freq: NEEDED Status: Active Protocol: Document 03/01/25 12:38 [facility] (Rec: 03/01/25 13:41 [facility] Desktop) Physical Therapy Current Condition Current Condition Evaluation Date 03/01/25 Treatment Diagnosis fall, weakness, rhabdo, impaired gait Onset Date 02/28/25 M3 PT-IP Subjective Start: 03/01/25 13:19 Freq: NEEDED Status: Active Protocol: Subjective Physical Therapy Visit Type Type Evaluation Visit Start Time 12:00 Visit Stop Time 12:38 Physical Therapy Visit Comments Patient Comments He reports he slept on the floor at home because he was too weak to get up. He likes his CPAP and wants to use it while at the hospital. Patient Goals To return home M4 PT-IP Mobility and Gait Start: 03/01/25 13:19 Freq: NEEDED Status: Active Protocol: Pain: 4/10 pain in back, aching, stabbing, tightness guarding noted repositioned pt for pain management PT-Bed Mobility Assessment Rolling to right side Level of Assist Minimal Assistance Supine to Sit Supine to Sit Moderate assist, bed rails used Sit to Supine Sit to Supine PT-Transfer Assessment Sit to and From Stand Contact Guard Sit to and from Stand Minimal Assistance to moderate assist, use of upper extremities Gait belt and front wheeled walker used Transfer Destination Chair Technique Stand step pivot Level of Assist Contact Guard assist/minimal assist using front wheeled walker Mobility Comments: Decreased control of stand to sit with difficulty flexing and reports back pain. Pt up to recliner for lunch today. Pt is fearful of standing up due to fear he is too weak. Gait Assessment Gait Gait Assistance Contact Guard Assist/minimal assist Required: Distance (Feet) 20 Assistive Devices Assistive Device Gait Belt,Front Wheeled Walker Gait Deviations General Gait Pattern Decreased Stride Length,Flexed trunk Factors Limiting Gait Function Factors Limiting Decreased Activity Tolerance Gait Function Comments Gait Comments His gait is slow but shows good weight bearing on his LE's with use of FWW. He ambulated 10 feet with FWW, seated rest and then another 20 feet. Mild shortness of breath with gait. PT-Balance Assessment Sitting Balance and Reactions Static Sitting Good Balance Ability Dynamic Sitting Fair Balance Ability Standing Balance and Reactions Static Standing Good Balance Ability Dynamic Standing Fair with FWW Other Functional Tests: pt unable to bend/reach forward for functional tasks, he describes pain and stiffness in his back but can not clearly state if this is why he can not move M5 PT-IP Objective Assessments Start: 03/01/25 13:19 Freq: NEEDED Status: Active Protocol: Orientation Orientation/Cognition Level of Alertness Alert Orientation Name,Age,Birthday,Month,Date,Year,Day of Week,Place, Situation Language Function Hard of Hearing Ability Understands safety issues No memory deficits noted Decreased problem solving noted this visit, he is fearful of falling Gross Range of Motion Upper Extremity ROM Assessment Within Functional Limits Lower Extremity ROM Assessment Within Functional Limits Strength Upper Extremity Strength Assessment Within Functional Limits Lower Extremity Strength Assessment Within Functional Limits Coordination Within Functional limits Sensation Within functional limits Other: Left great toe infection with dressing in place M6 PT-IP Treatment Start: 03/01/25 13:19 Freq: NEEDED Status: Active Protocol: Document Physical Therapy Treatment Exercises Exercises Education Education Provided Safety, Pt up to recliner, call light close, pt educated to have nursing assist for mobility/gait M7 PT-IP Assessment and Plan Start: 03/01/25 13:19 Freq: NEEDED Status: Active Protocol: Document 4) PT Summary Assessment and Plan Potential Rehabilitation Good Potential Status of Condition Evolving at Evaluation Summary Impairments Pain, ROM,Strength,Balance,Bed Mobility,Transfers, Gait, cognition, activity tolerance Goals Assessment Summary Pardeep is alert and resting in bed. He has cochlear implant on to assist with communication. He describes severe weakness that developed at home with pt unable to ambulate and resulting in his fall. He is fearful to get out of bed today. He presents with stiffness in his back that interferes with mobility. He was able to slowly progress to standing with the FWW and short distances of gait in the room with FWW. He is independent without a device at baseline. Recommend SNF rehab to assist with his functional recovery including gait for community distances with the least restrictive device. His is not present today to discuss discharge needs. Goals Bed Mobility Goal Independent Transfer Goal Independent front wheeled walker Gait Goal Independent. front wheeled walker Gait Distance 150 Duration: 10 days Frequency of Treatment Frequency Of Once a Day Treatment Treatment Plan Physical Therapy Bed mobility Transfers Gait Therapeutic activity Therapeutic exercises Discharge planning Hot/cold pack Neuromuscular re-education manual therapy continue to assess back pain if it limits mobility/gait Treatment Plan Recommendations To Nursing Amount of Assist 1 Person Assist Needed Discharge Recommendations PT Discharge SNF Rehab Recommendations Transportation Needs Wheelchair/Cabulance or private vehicle at Discharge
--- NOTE | 2025-03-01 15:26 | CM.DANOTE ---
B DCP Assessment note pt is a 84yo M here with rhabdo after a GLF at home resulted in him being on the floor for four hours. 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 PT/OT=SNF. WINDOW SHADE INSTALLER met with pt briefly in room. VERY [place]. impacted communication signifcantly. only able to complete a brief assessment. reports living at home in [place] with spouse. previously was indep with mobility. hyperfixated on his cardiac status- did not really want to discuss the DCP with this WINDOW SHADE INSTALLER until there were more medical answers. Agreeable to SNF if needed- reports he does not feel strong enough to go home and wants intermediate help until his potential open heart surgery. reports cannot afford LTC PP or short term respite care. really overall resistant to discussing the DCP until he gets medical answers. open to this WINDOW SHADE INSTALLER sending a SNF ref to [facility]. if [facility] cannot accept open to [facility]. no hx of HH. WINDOW SHADE INSTALLER sent ref to [facility]. [facility] needed P: pending medical POC. either home vs SNF pending improvements with therapies. Will continue to follow closely for DCP Coordination LENKA Garsia Discharge Planning/Care Management CM Discharge Assessment Start: 02/28/25 15:08 Freq: Status: Active Protocol: Document 03/01/25 15:24 [facility] (Rec: 03/01/25 15:25 [id number]) Discharge Planning Assessment Assigned Discharge LENKA Rodney Sales Representative Aircraft Provider Anuja Gongora Insurance Medicare Insurance Comment for life secondary DPOA/Assigned rosa isela, spouse Designee Name Contact Information [phone] Advance Directives? Yes Advance Directives No on File History Provided By Patient,Family Member Prior Living House Arrangements Household Members spouse Is patient alert and Yes oriented? Discharge Plan Group Home Facility Referrals Initiated Group Home Review Status In Process Please Provide Date 03/01/25 Initial DC Assessment Was Performed Next Review Type Continued Stay Review
[2025-03-01] MEDS: INSULIN NPH 100 UNIT/ML 10ML VIAL 15 UNIT SUBCUT (21:25)
[2025-03-02] VITALS (18 sets, daily range): BP systolic 124–154; BP diastolic 35–77; PULSE 58–81; RESP 16–32; TEMP 35.8–37; O2SAT 94–99
[2025-03-02 06:04] LABS: Add Manual Diff / Slide Review NO; Hematocrit 27.4 % (41-53); Hemoglobin 9.9 g/dL (13.5-17.5); Lymphocytes Absolute Auto 300 /uL (1100-4500); Mean Corpuscular HGB Conc 36.1 % (30-36); Mean Corpuscular Hemoglobin 37.3 PG (26-34); Mean Corpuscular Volume 103.1 fL (80-100); Platelet Count 136 X10^3/uL (150-400)
[2025-03-02 06:14] LABS: Hemoglobin A1C% w Est Avg Glu 5.5 % (4.0-6.0)
[2025-03-02 06:21] LABS: Blood Urea Nitrogen 29 mg/dL (9-20); Calcium 8.3 mg/dL (8.4-10.2); Carbon Dioxide 23 mmol/L (22-32); Chloride 101 mmol/L (98-107); Estimated Glomerular Filt Rate > 60 mL/min (>60); Glucose 157 mg/dL (70-99); HEMOLYSIS < 15 (0-50); Potassium 3.8 mmol/L (3.4-5.1); Sodium 133 mmol/L (137-145)
[2025-03-02 06:43] LABS: Creatine Kinase 5746 U/L (55-170)
[2025-03-02 07:02] LABS: Rouleaux 1+
[2025-03-02] MEDS: INSULIN LISPRO 100 UNIT/ML 3ML VIAL SUBCUT ×4 (08:44→20:54)
[2025-03-02] MEDS: HEPARIN 5,000 UNIT/ML VIAL 5000 UNIT SUBCUT ×2 (08:47→20:41)
[2025-03-02] MEDS: FERROUS SULFATE 325 MG TABLET PO (08:47)
[2025-03-02] MEDS: ATORVASTATIN 20 MG TABLET PO (08:47)
[2025-03-02] MEDS: CHLORTHALIDONE 25 MG TABLET PO (08:47)
[2025-03-02] MEDS: SPIRONOLACTONE 25 MG TABLET 12.5 MG PO (08:48)
[2025-03-02] MEDS: VIT C/E/ZN/COPPR/LUTEIN/ZEAXAN CAPSULE 1 CAP PO ×2 (08:48→20:41)
--- NOTE | 2025-03-02 10:33 | P.PN_ITS ---
Subjective Subjective Interval history: S: Still feeling fairly weak. Especially when trying to get out of bed with his lower extremities in particular. No pain, or dyspnea. O: VSS NAD, alert and oriented. Fluent speech. Lungs are clear, normal rate and effort. Heart is regular, no murmur gallop or rub. Abdomen is soft, non distended. Extremities are free of edema. A/P: 1. Weakness, active. 2. Ground level fall with sustained downtime, active. 3. Traumatic rhabdomyolysis, improving. 4. HLD, stable. 5. Hypertension, stable. 6. Aortic stenosis, stable. 7. BPH, stable. 8. Dm 2, stable. 9. Aortic stenosis (moderate), stable. 10. Severe hearing loss, stable. PLAN: -anticipate rehabilitation needs at [facility] facility. We will attempt to find placement today. -ongoing physical therapy. -continue chronic medications. ANUP; 03/03 (SNF) Exam Vital Signs (past 8 hours): - 03/02/25 04:00 03/02/25 08:00 03/02/25 08:47 Temperature 97.5 F L 97.1 F L Pulse Rate 69 68 Respiratory Rate 16 20 Blood Pressure 127/77 124/46 L 128/46 L Pulse Oximetry 99 94 Oxygen Flow Rate 0 0 03/02/25 08:48 03/02/25 08:48 Temperature Pulse Rate Respiratory Rate Blood Pressure 128/46 L 128/46 L Pulse Oximetry Oxygen Flow Rate Oxygen Delivery Method Room Air Oxygen Flow Rate 0 Objective Labs 03/02/25 04:30 03/02/25 04:30 Labs: Laboratory Results - last 24 hr 03/01/25 03/01/25 03/01/25 11:06 17:00 19:42 WBC RBC Hgb Hct MCV MCH MCHC RDW Plt Count Neut % (Auto) Lymph % (Auto) [place] % (Auto) Eos % (Auto) Baso % (Auto) Neut # (Auto) Lymph # (Auto) [place] # (Auto) Eos # (Auto) Baso # (Auto) RBC Morphology Rouleaux Sodium Potassium Chloride Carbon Dioxide BUN Creatinine Estimated GFR BUN/Creatinine Ratio Glucose POC Whole Bld Glucose 116 H 166 H 162 H Hemoglobin A1c Calcium Total Creatine Kinase 03/02/25 03/02/25 04:30 07:23 WBC 8.4 RBC 2.66 L Hgb 9.9 L Hct 27.4 L MCV 103.1 H MCH 37.3 H MCHC 36.1 H RDW 12.6 Plt Count 136 L Neut % (Auto) 90.2 H Lymph % (Auto) 3.2 L [place] % (Auto) 6.4 Eos % (Auto) 0.0 L Baso % (Auto) 0.2 Neut # (Auto) 7600 H Lymph # (Auto) 300 L [place] # (Auto) 500 Eos # (Auto) 0 Baso # (Auto) 0 RBC Morphology See below Rouleaux 1+ H Sodium 133 L Potassium 3.8 Chloride 101 Carbon Dioxide 23 BUN 29 H Creatinine 1.12 Estimated GFR > 60 BUN/Creatinine Ratio 25.9 H Glucose 157 H POC Whole Bld Glucose 149 H Hemoglobin A1c 5.5 Calcium 8.3 L Total Creatine Kinase 5746 H D PFSH Medical History Macular degeneration HLD (hyperlipidemia) GERD (gastroesophageal reflux disease) HTN (hypertension) Aortic stenosis Incomplete emptying of bladder Bladder outlet obstruction Nocturia History of tobacco use Lower urinary tract symptoms Heart murmur Sleep apnea treated with nocturnal BiPAP Diabetes mellitus Hypertension Surgical History H/O transurethral resection of prostate History of cataract surgery Family History Mother Hypertension High cholesterol Hearing impaired Social History household members: spouse Smoking Status: Never smoker alcohol intake: current Assessment & Plan Time-Based Coding :: [TOTAL MINUTES] spent with patient and on the chart (including review of chart, obtaining history, exam, reviewing outside data, placing orders, documenting exam and treatment plan, and counseling patient) on [DATE].
--- NOTE | 2025-03-02 11:40 | OT.IP.TRT ---
Current Diagnoses Traumatic ischemia of muscle, initial encounter (02/28/25) Occupational Therapy Treatment Note M2 OT-IP Current Condition Start: 03/01/25 13:18 Freq: Status: Active Protocol: Document 03/01/25 13:18 [facility] (Rec: 03/01/25 13:32 [facility] Desktop) Occupational Therapy Current Condition Current Condition Evaluation Date 03/01/25 Treatment Diagnosis Rhabdomyolysis, generalized weakness, s/p GLF Diagnosis Onset Date 02/28/25 M3 OT- IP Subjective and Pain Start: 03/01/25 13:18 Freq: Status: Active Protocol: Document 03/02/25 11:43 [facility] (Rec: 03/02/25 11:58 [facility] Desktop) OT- Subjective Occupational Therapy Visit Type Type Treatment Note Visit Start Time 11:08 Visit Stop Time 11:40 Occupational Therapy Visit Comments Patient Comments Pt agreed to get up to change out his gown and get up to the recliner. Patient/Caregiver Pt realizes bets to go to skilled rehab to work on bed Goals mobility needs as pt states has to get up 10times at night. OT Pain Assessment Pain When Pain Assessed During Mobility Pain Present Pain Present Pain Reported Location back Pain Behaviors Facial Grimacing M4 OT- IP ADL's Start: 03/01/25 13:18 Freq: Status: Active Protocol: Document 03/02/25 11:43 [facility] (Rec: 03/02/25 11:58 [facility] Desktop) OT [id number] Comments OT Self-Feeding Not at meal time. Comments OT ADL-Grooming Comments OT Grooming Comments Pt did prior. OT ADL-Oral Care Comments Oral Care Comments Pt did prior. OT ADL-Dressing General Eval Lower Body Dressing Maximum Assistance Ability Comments OT Dressing Comments Pt still unable to reach down for LB dressing needs. OT ADL-Toileting General Evaluation Toileting Ability Moderate Assistance,Maximum Assistance Areas Needing Manage Clothing,Perform Perineal Hygiene Assistance Comments OT Toileting Pt's bed wet and with nursing aid assist able to change Comments out his gown and brief. M5 OT- IP IADL's Start: 03/01/25 13:18 Freq: Status: Active Protocol: Document 03/01/25 13:18 [facility] (Rec: 03/01/25 13:32 [facility] Desktop) OT-Instrumental Activities of Daily Living Meal Preparation Meal Preparation Pt will need assist. Comments Machine Learning Intern Machine Learning Intern Pt will need assist. Comments M6 OT- IP Functional Cognition Start: 03/01/25 13:18 Freq: Status: Active Protocol: Document 03/02/25 11:43 [facility] (Rec: 03/02/25 11:58 [facility] Desktop) Cognitive Factors Limiting Selfcare Function Cognitive Ability Level of Alertness Alert Patient Orientation Name,Age,Birthday,Month,Date,Year,Day of Week,Place, Situation Attention Span Capable of Focused Attention,Capable of Sustained Ability Attention Ability to Follow Able to Follow One Step Commands Commands Cognitive Tests SLUMS 24/30 on the SLUMS. Pt able to states 10 animals in one minute, able to recall 4/5 objects after time passed, not able to state 3 or 4 digit numbers backwards, and not able to draw the hour hands on the clock correctly. Cognitive Comments Cognitive Assessment Pt scored 24/30 which implies mild neuro cognitive Comments disorder. M7 OT- IP Mobility and Balance Start: 03/01/25 13:18 Freq: Status: Active Protocol: Document 03/02/25 11:43 [facility] (Rec: 03/02/25 11:58 [facility] Desktop) OT- Bed Mobility Assessment Supine to Sit Supine to Sit Assist Moderate Assistance Sit to Supine Sit to Supine Assist Contact Guard Assistance OT-Transfer Assessment Sit to and From Stand Sit to and from Contact Guard Assistance,Minimal Assistance Stand Transfers Transfer Ability Contact Guard Assistance Technique Transfer Destination Bed,Chair Transfer Technique Stand Step Pivot Devices Transfer Assistive Gait Belt,Front Wheeled Walker Devices Comments Mobility Comments Pt needing assist to get his trunk upright. Pt not able to push up with his BUE and use of core to get upright without assist. Pt states gets up 10 times to use the bathroom at home. Once seated, pt able to come to stand with CGA and transfer with the FWW. SAMANTHA to help lower to the recliner. BP sitting 122/30, standing 108/38 and 102/44. OT- Balance Assessment Sitting Balance and Reactions Static Sitting Good Balance Ability Dynamic Sitting Good Balance Ability Standing Balance and Reactions Static Standing Fair Balance Ability Dynamic Standing Fair Balance Ability M8 OT- IP Objective Assessments Start: 03/01/25 13:18 Freq: Status: Active Protocol: Document 03/01/25 13:18 [facility] (Rec: 03/01/25 13:32 [facility] Desktop) OT Gross Range of Motion Upper Extremity Range of Motion ROM Impairments grossly WFL OT Strength Comments Strength Comments grossly WFL M9 OT- IP Assessment and Plan Start: 03/01/25 13:18 Freq: Status: Active Protocol: Document 03/02/25 11:43 [facility] (Rec: 03/02/25 11:58 [facility] Desktop) OT Summary Assessment and Plan Potential Rehabilitation Good Potential Analytic Complexity High at Evaluation Summary OT Impairments Pain,Balance,Functional Mobility,Self-Feeding,Grooming, Dressing,Toileting,Bathing,Toilet Transfers,Shower Transfers,Activity Tolerance Progress Towards Progressing Toward Goals,Slow Progress due to Medical Goals Issues,Slow Progress due to Activity Tolerance Assessment Summary Pt doing better today and more alert and scored 24/30 on the SLUMS which implies mild neuro cognitive disorder. Pt still has a lot of trouble for bed mobility needs- ability to coordinate his movement to get from side-lying to upright. Pt will benefit from skilled rehab and pt now agreeable to go. Goals Self-Feeding Goal Independent Grooming Goal Independent Dressing Goal Independent Toileting Goal Independent Bathing Goal Standby Assistance Toilet Transfer Goal Independent Shower Transfer Goal Independent Days to Meet Goals 19 Frequency of Treatment Other frequency 5x/week Treatment Plan OT Treatment Plan ADL Training,Functional Mobility,Patient/Family Education,Discharge Planning Discharge Recommendations OT Discharge SNF Rehab Recommendations Transportation Needs Wheelchair/Cabulance at Discharge
--- NOTE | 2025-03-02 11:41 | CM.DPC ---
DCP SNF Planning: Per MD, met bedside with pt and discussed PT/OT recommendation of SNF and pt agreeable now to SNF at [facility] at discharge and MD anticipates pt likely ready for d/c to SNF tomorrow Thursday. Per OT, pt confirms today that he is in agreement with [facility] at d/c and pt needs strengthening before discharge home with spouse. SW updated [facility] and resent SNF referral to review and [facility] can accept and aware that pt likely ready for discharge tomorrow which is when he will be MCR eligible for d/c to SNF as well. PASRR done. Brittney Oliva, INSTRUMENTATION AND CONTROLS TECHNICIAN
--- NOTE | 2025-03-02 12:07 | PT.IPTN ---
Current Diagnoses Traumatic ischemia of muscle, initial encounter (02/28/25) Physical Therapy Treatment Note M2 PT-IP Current Condition Start: 03/01/25 13:19 Freq: NEEDED Status: Active Protocol: Document 03/01/25 12:38 [facility] (Rec: 03/01/25 13:41 [facility] Desktop) Physical Therapy Current Condition Current Condition Evaluation Date 03/01/25 Treatment Diagnosis fall, weakness, rhabdo, impaired gait Onset Date 02/28/25 M3 PT-IP Subjective Start: 03/01/25 13:19 Freq: NEEDED Status: Active Protocol: Document 03/02/25 12:02 KJ (Rec: 03/02/25 12:07 KJ [id number]) Subjective Physical Therapy Visit Type Type Treatment Note Visit Start Time 11:41 Visit Stop Time 12:01 Physical Therapy Visit Comments Patient Comments Still needing help in and out of bed. Patient Goals To return home M4 PT-IP Mobility and Gait Start: 03/01/25 13:19 Freq: NEEDED Status: Active Protocol: Document 03/02/25 12:02 KJ (Rec: 03/02/25 12:07 KJ [id number]) PT-Bed Mobility Assessment Rolling Level of Assist Minimal Assistance Supine to Sit Supine to Sit Contact Guard Assistance Sit to Supine Sit to Supine Minimal Assistance PT-Transfer Assessment Sit to and From Stand Sit to and from Minimal Assistance Stand Gait Assessment Gait Gait Assistance Contact Guard Assist Required: Distance (Feet) 25 Assistive Devices Assistive Device Gait Belt,Front Wheeled Walker Gait Deviations General Gait Pattern Decreased Stride Length,Wide Based Gait Factors Limiting Gait Function Factors Limiting Decreased Activity Tolerance Gait Function Comments Gait Comments Improving in ambulatory ability PT-Balance Assessment Sitting Balance and Reactions Static Sitting Good Balance Ability Dynamic Sitting Good Balance Ability Standing Balance and Reactions Static Standing Good Balance Ability Dynamic Standing Good Balance Ability M5 PT-IP Objective Assessments Start: 03/01/25 13:19 Freq: NEEDED Status: Active Protocol: Document 03/02/25 12:02 KJ (Rec: 03/02/25 12:07 KJ [id number]) Orientation Orientation/Cognition Level of Alertness Alert Orientation Name,Age,Birthday,Month,Date,Year,Day of Week,Place, Situation Language Function Hard of Hearing Ability Gross Range of Motion Upper Extremity ROM Assessment Within Functional Limits Lower Extremity ROM Assessment Within Functional Limits Strength Upper Extremity Strength Assessment Within Functional Limits Lower Extremity Strength Assessment Within Functional Limits Comments Strength Comments Pt feels weak M6 PT-IP Treatment Start: 03/01/25 13:19 Freq: NEEDED Status: Active Protocol: Document 03/02/25 12:02 KJ (Rec: 03/02/25 12:07 KJ [id number]) Physical Therapy Treatment Exercises Exercises Ankle Pumps,Quad Sets,Short Arc Quads Education Education Provided Safety M7 PT-IP Assessment and Plan Start: 03/01/25 13:19 Freq: NEEDED Status: Active Protocol: Document 03/02/25 12:02 KJ (Rec: 03/02/25 12:07 KJ [id number]) PT Summary Assessment and Plan Potential Rehabilitation Excellent Potential Status of Condition Evolving at Evaluation Summary Impairments Strength,Balance,Bed Mobility,Transfers Progress Towards Progressing Toward Goals Goals Assessment Summary Pt shows improvement but is not able to return home safely at this time. Goals Bed Mobility Goal Independent Transfer Goal Independent Gait Goal Independent Gait Distance 50 Frequency of Treatment Frequency Of Once a Day Treatment Treatment Plan Physical Therapy Gait Training,Therapeutic Exercise Treatment Plan Recommendations To Nursing Amount of Assist 1 Person Assist Needed Discharge Recommendations PT Discharge SNF Rehab Recommendations Transportation Needs Wheelchair/Cabulance at Discharge
[2025-03-02] MEDS: FUROSEMIDE 20 MG TABLET PO (15:46)
--- NOTE | 2025-03-02 18:21 | EKG_ITS ---
[place] [id number] [place] [address] Test Date: 2025-03-02 Pat Name: Pardeep Meyer Department: Room: 218 Gender: Male Hematology Nurse: : 1940 Requested By: Order Number: [id number] Reading MD: Willy Moreau MD Measurements Intervals [place] Rate: 74 P: 18 ME: 190 QRS: -12 QRSD: 76 T: 32 QT: 382 QTc: 424 Interpretive Statements Normal sinus rhythm Minimal voltage criteria for LVH, may be normal variant ( R in aVL ) Electronically Signed On 03-03-2025 7:26:20 PST by Willy Moreau MD
[2025-03-02 19:40] LABS: Troponin I 0.026 ng/mL (0.01-0.034)
[2025-03-02] MEDS: INSULIN NPH 100 UNIT/ML 10ML VIAL 15 UNIT SUBCUT (20:56)
[2025-03-03] VITALS: BP 145/41; PULSE 64; RESP 16; TEMP 36.6; O2SAT 95
[2025-03-03 01:06] LABS: Troponin I 0.027 ng/mL (0.01-0.034)
[2025-03-03 04:00] VITALS: BP 136/50; PULSE 64; RESP 18; TEMP 36.6; O2SAT 96
[2025-03-03 05:11] LABS: Add Manual Diff / Slide Review NO; Hematocrit 28.1 % (41-53); Hemoglobin 10.0 g/dL (13.5-17.5); Lymphocytes Absolute Auto 500 /uL (1100-4500); Mean Corpuscular HGB Conc 35.6 % (30-36); Mean Corpuscular Hemoglobin 37.1 PG (26-34); Mean Corpuscular Volume 104.3 fL (80-100); Platelet Count 139 X10^3/uL (150-400)
[2025-03-03 05:31] LABS: Blood Urea Nitrogen 31 mg/dL (9-20); Calcium 8.8 mg/dL (8.4-10.2); Carbon Dioxide 26 mmol/L (22-32); Chloride 99 mmol/L (98-107); Creatine Kinase 1427 U/L (55-170); Estimated Glomerular Filt Rate > 60 mL/min (>60); Glucose 138 mg/dL (70-99); HEMOLYSIS < 15 (0-50); Potassium 3.6 mmol/L (3.4-5.1); Sodium 135 mmol/L (137-145)
[2025-03-03 08:00] VITALS: BP 127/34; PULSE 63; RESP 16; TEMP 35.9; O2SAT 97
--- NOTE | 2025-03-03 09:39 | P.DS_ITS ---
History of Present Illness History of Present Illness Chief complaint: weakness/fall No thinners Narrative: Patient was a 84-year-old male with a history of aortic stenosis who presents with progressive fatigue and weakness. He apparently fell to the ground last night was stuck on the floor for about 4 hours. He was ultimately able to get up and was brought to the ER today. He was found to have evidence of rhabdomyolysis with elevated CK, and pigmented in his urine. The patient did not have acute kidney injury. He notes that he was become weak over the last 7- 10 days and that the weakness has global in arms and legs. Denies any edema, dyspnea, orthopnea. He has known aortic stenosis and the possibility of a valve replacement has been mentioned in the past. No recent chest pain, fevers, chills, cough, URI symptoms. He does have chronic rectal urgency. He denies any hematuria, or dysuria. Discharge Providers Provider Date of admission: 02/28/25 14:52 Discharge Date: 03/03/25 Primary care physician: Anuja Gongora PA-C Consults: 02/28/25 15:24 Consult to Physical Therapy Evaluate & Treat Comment: Physician Instructions: Evaluate and Treat 02/28/25 15:25 Consult to Occupational Therapy Evaluate & Treat Comment: Physician Instructions: Evaluate and treat Discharge provider: Lee Garnett MD Summary Hospital Course Discharge Diagnosis: 1. Weakness, active. 2. Ground level fall with sustained downtime, active. 3. Traumatic rhabdomyolysis, improving. 4. HLD, stable. 5. Hypertension, stable. 6. Aortic stenosis, stable. 7. BPH, stable. 8. Dm 2, stable. 9. Aortic stenosis (moderate), stable. 10. Severe hearing loss, stable. Hospital Course: He was initially admitted with weakness and possible UTI. He was treated with IV antibiotics and IV fluids. His sodium was initially 128 and lactic acid was elevated but did normalize. He did have persistent lower extremity weakness. He was felt to be a good candidate for rehabilitation efforts. He was agreeable to [facility] facility. Status at Discharge Cognitive/behavioral status at discharge: oriented Functional status at discharge: uses cane/walker Overall status at discharge: patient is progressing back to baseline Time Spent with Patient Time spent: Greater than 30 minutes Exam Vital Signs (past 8 hours): - 03/03/25 04:00 03/03/25 08:00 Temperature 97.9 F 96.7 F L Pulse Rate 64 63 Respiratory Rate 18 16 Blood Pressure 136/50 L 127/34 L Pulse Oximetry 96 97 Oxygen Flow Rate 0 Oxygen Delivery Method Room Air Oxygen Flow Rate 0 Narrative Exam Narrative: NAD, alert and oriented. Fluent speech. Lungs are clear, normal rate and effort. Heart is regular, no murmur gallop or rub. Abdomen is soft, non distended. Extremities are free of edema. Objective ECG Impression: Intervals [place] Rate: 73 P: 82 CT: 186 QRS: -8 QRSD: 78 T: 47 QT: 392 QTc: 431 Interpretive Statements Normal sinus rhythm Nonspecific ST abnormality Imaging Chest x-ray: Radiologist's impression: No acute cardiopulmonary pathology. Echo: Radiologist's impression: Normal sinus rhythm. Normal LV size; mild-moderate concentric LVH; normal wall motion and LV systolic function. EF is 60-65%. Mild LA enlargement; otherwise normal chamber sizes. Aortic valve is a trileaflet structure with moderately thickened and calcified leaflets; there is moderate aortic stenosis and regurgitation. Moderately dilated ascending aorta on personal review measuring 4.4 cm in diameter. Consider CT chest angiogram to confirm aorta diameter. Compared to prior echo 10/25/2021 aortic stenosis progressed; peak velocity across aortic valve cat from 2.6 to 3 m/sec. Labs 03/03/25 04:27 03/03/25 04:27 Labs: Laboratory Results - last 24 hr 03/02/25 03/02/25 03/02/25 11:45 16:21 18:54 WBC RBC Hgb Hct MCV MCH MCHC RDW Plt Count Neut % (Auto) Lymph % (Auto) [place] % (Auto) Eos % (Auto) Baso % (Auto) Neut # (Auto) Lymph # (Auto) [place] # (Auto) Eos # (Auto) Baso # (Auto) Sodium Potassium Chloride Carbon Dioxide BUN Creatinine Estimated GFR BUN/Creatinine Ratio Glucose POC Whole Bld Glucose 181 H 199 H Calcium Total Creatine Kinase Troponin I 0.026 03/02/25 03/03/25 03/03/25 19:42 00:14 04:27 WBC 7.1 RBC 2.69 L Hgb 10.0 L Hct 28.1 L MCV 104.3 H MCH 37.1 H MCHC 35.6 RDW 12.5 Plt Count 139 L Neut % (Auto) 83.2 H Lymph % (Auto) 6.7 L [place] % (Auto) 9.3 Eos % (Auto) 0.4 L Baso % (Auto) 0.4 Neut # (Auto) 5900 Lymph # (Auto) 500 L [place] # (Auto) 700 Eos # (Auto) 0 Baso # (Auto) 0 Sodium 135 L Potassium 3.6 Chloride 99 Carbon Dioxide 26 BUN 31 H Creatinine 1.16 Estimated GFR > 60 BUN/Creatinine Ratio 26.7 H Glucose 138 H POC Whole Bld Glucose 202 H Calcium 8.8 Total Creatine Kinase 1427 H D Troponin I 0.027 03/03/25 07:50 WBC RBC Hgb Hct MCV MCH MCHC RDW Plt Count Neut % (Auto) Lymph % (Auto) [place] % (Auto) Eos % (Auto) Baso % (Auto) Neut # (Auto) Lymph # (Auto) [place] # (Auto) Eos # (Auto) Baso # (Auto) Sodium Potassium Chloride Carbon Dioxide BUN Creatinine Estimated GFR BUN/Creatinine Ratio Glucose POC Whole Bld Glucose 135 H Calcium Total Creatine Kinase Troponin I [facility] Medical History Macular degeneration HLD (hyperlipidemia) GERD (gastroesophageal reflux disease) HTN (hypertension) Aortic stenosis Incomplete emptying of bladder Bladder outlet obstruction Nocturia History of tobacco use Lower urinary tract symptoms Heart murmur Sleep apnea treated with nocturnal BiPAP Diabetes mellitus Hypertension Surgical History H/O transurethral resection of prostate History of cataract surgery Family History Mother Hypertension High cholesterol Hearing impaired Social History household members: spouse Smoking Status: Never smoker alcohol intake: current Discharge Assessment & Plan Assessment and Plan Assessment: As above. [N], the patient has documentation of a left ventricle ejection fracture less than or equal to 40%, or moderately or severely reduced left ventricle systolic function. [N], the patient has a history of heart transplant or left ventricular assist device (LVAD). [N], the patient was prescribed an VARINDER inhibitor at discharge or is already being taken. The patient was not prescribed an VARINDER-inhibitor because of the following exception: NA. [N], the patient was prescribed Metoprolol succinate, bisoprolol, or carvedilol at discharge. The patient was not prescribed Metoprolol succinate, bisoprolol, or carvedilol at discharge because of the following exception: NA. Plan of Treatment: Discharge to [facility] for rehabilitation efforts. We will complete several more days of cephalexin which he had been on for his left great toe. Discharge Plan Discharge Plan Patient Disposition: SNF Transfer to: [facility] Under care of provider: SNF provider Provider Discharge Comment: Stable for discharge to [facility] for ongoing rehab efforts. Discharge orders & Medications Prescriptions: Continued atorvastatin [Lipitor] 20 MG tablet 20 mg PO QDAY Qty: 0 cyanocobalamin (vitamin B-12) 1,000 MCG tablet extended release 1,000 mcg PO DAILY Qty: 0 lisinopril 20 mg tablet 20 mg PO BID Qty: 0 NIFEDIPINE (NIFEDICAL XL) 30 mg PO TID Qty: 0 ferrous sulfate [Iron (ferrous sulfate)] 325 mg (65 mg iron) Tablet 325 mg PO DAILY amlodipine 5 mg tablet 5 mg PO BID carvedilol 25 mg tablet 25 mg PO BID glipizide 10 mg tablet extended release 24hr 10 mg PO BID hydralazine 25 mg tablet 25 mg PO 3XD chlorthalidone 25 mg tablet 25 mg PO DAILY cephalexin 500 mg capsule 500 mg PO 4XD Humulin N NPH Insulin KwikPen 100 unit/mL (3 mL) insulin pen 15 unit SUBCUT .[facility] Patient Comments: [NO ORIGINAL SIG] Jardiance 10 mg tablet 10 mg PO DAILY spironolactone 25 mg tablet 12.5 mg PO .qday pantoprazole 40 mg tablet,delayed release (DR/EC) 40 mg PO DAILY furosemide 20 mg tablet 20 mg PO DAILY PRN (Reason: Edema) clobetasol-calcipotriene 0.05-0.005 % solution topical .QD PRN (Reason: rash) PreserVision AREDS-2 250-90-40-1 mg capsule 1 tab PO BID cholecalciferol (vitamin D3) 125 mcg (5,000 unit) tablet 125 mcg PO DAILY potassium gluconate 595 mg (99 mg) tablet 595 mg PO DAILY Medication counseling provided by Pharmacist: No Follow up/Referrals: Anuja Gongora PA-C [Primary Care Provider, Medical] Discharge Health Status Multidrug resistant organism: No MDRO Diet/Activity/Treatments Diet: Carb-consistent/Diabetic Activity: Per PT Visit Report/Discharge Packet Stand Alone Forms: Patient Portal/API Discharge Data Primary Care Provider: Anuja Gongora
[2025-03-03] MEDS: HEPARIN 5,000 UNIT/ML VIAL 5000 UNIT SUBCUT (10:24)
[2025-03-03 10:25] VITALS: BP 120/60
[2025-03-03] MEDS: SPIRONOLACTONE 25 MG TABLET 12.5 MG PO (10:25)
[2025-03-03 10:26] VITALS: BP 120/60
[2025-03-03] MEDS: ATORVASTATIN 20 MG TABLET PO (10:27)
[2025-03-03] MEDS: CHLORTHALIDONE 25 MG TABLET PO (10:31)
--- NOTE | 2025-03-03 10:51 | CM.DPC ---
MED LIST, DC SUMMARY AND PASRR SENT TO . PATIENT AND RN HARJIT UPDATED. FILM BOOKER FOR SV IS 1130 AM TODAY.
[2025-03-03] MEDS: VIT C/E/ZN/COPPR/LUTEIN/ZEAXAN CAPSULE 1 CAP PO (10:57)
[2025-03-03] MEDS: FERROUS SULFATE 325 MG TABLET PO (10:57)
[2025-03-03 11:03] VITALS: BP 118/56
[2025-03-03] MEDS: INSULIN LISPRO 100 UNIT/ML 3ML VIAL SUBCUT (11:06)
--- NOTE | 2025-03-03 11:23 | PC.NURSE ---
Pt sitting in chair, Denies discomfort' CBG 135 ac breakfast, 209 ac lunch D/C orders to [facility] received. P/U time approximately 1130 Call light w/in reach. [employer] [place] [employer].
--- NOTE | 2025-03-03 12:06 | OT.IP.TRT ---
Current Diagnoses Traumatic ischemia of muscle, initial encounter (02/28/25) Occupational Therapy Treatment Note M2 OT-IP Current Condition Start: 03/01/25 13:18 Freq: Status: Active Protocol: Document 03/01/25 13:18 [facility] (Rec: 03/01/25 13:32 [facility] Desktop) Occupational Therapy Current Condition Current Condition Evaluation Date 03/01/25 Treatment Diagnosis Rhabdomyolysis, generalized weakness, s/p GLF Diagnosis Onset Date 02/28/25 M3 OT- IP Subjective and Pain Start: 03/01/25 13:18 Freq: Status: Active Protocol: Document 03/03/25 12:07 [facility] (Rec: 03/03/25 12:12 [facility] Desktop) OT- Subjective Occupational Therapy Visit Type Type Treatment Note Visit Start Time 11:58 Visit Stop Time 12:06 Occupational Therapy Visit Comments Patient Comments Pt agreed to take about ADL equipment and bed rail versus transfer pole. Patient/Caregiver To be able to get in and out of the bed on his own. Goals OT Pain Assessment Pain When Pain Assessed At Rest Pain Present Pain Present Denied Pain M4 OT- IP ADL's Start: 03/01/25 13:18 Freq: Status: Active Protocol: Document 03/03/25 12:07 [facility] (Rec: 03/03/25 12:12 [facility] Desktop) OT ADL-Dressing Comments OT Dressing Comments Spoke on ADL equipment needs, but best to work on his flexibility so able to do LB Dressing needs again. M5 OT- IP IADL's Start: 03/01/25 13:18 Freq: Status: Active Protocol: Document 03/01/25 13:18 [facility] (Rec: 03/01/25 13:32 [facility] Desktop) OT-Instrumental Activities of Daily Living Meal Preparation Meal Preparation Pt will need assist. Comments Cargoman Cargoman Pt will need assist. Comments M6 OT- IP Functional Cognition Start: 03/01/25 13:18 Freq: Status: Active Protocol: Document 03/02/25 11:43 [facility] (Rec: 03/02/25 11:58 [facility] Desktop) Cognitive Factors Limiting Selfcare Function Cognitive Ability Level of Alertness Alert Patient Orientation Name,Age,Birthday,Month,Date,Year,Day of Week,Place, Situation Attention Span Capable of Focused Attention,Capable of Sustained Ability Attention Ability to Follow Able to Follow One Step Commands Commands Cognitive Tests SLUMS 24/30 on the SLUMS. Pt able to states 10 animals in one minute, able to recall 4/5 objects after time passed, not able to state 3 or 4 digit numbers backwards, and not able to draw the hour hands on the clock correctly. Cognitive Comments Cognitive Assessment Pt scored 24/30 which implies mild neuro cognitive Comments disorder. M7 OT- IP Mobility and Balance Start: 03/01/25 13:18 Freq: Status: Active Protocol: Document 03/03/25 12:07 [facility] (Rec: 03/03/25 12:12 [facility] Desktop) OT-Transfer Assessment Comments Mobility Comments Went over bed mobility and technique with pt. ALso to consider getting a bed rail versus transfer pole for safety at home as pt states has to get up 10times at night to use the toilet. M8 OT- IP Objective Assessments Start: 03/01/25 13:18 Freq: Status: Active Protocol: Document 03/01/25 13:18 [facility] (Rec: 03/01/25 13:32 [facility] Desktop) OT Gross Range of Motion Upper Extremity Range of Motion ROM Impairments grossly WFL OT Strength Comments Strength Comments grossly WFL M9 OT- IP Assessment and Plan Start: 03/01/25 13:18 Freq: Status: Active Protocol: Document 03/03/25 12:07 [facility] (Rec: 03/03/25 12:12 [facility] Desktop) OT Summary Assessment and Plan Potential Rehabilitation Good Potential Analytic Complexity High at Evaluation Summary Assessment Summary Able to go over ADL and mobility equipment needs for pt . Pt main barrier now is mainly his bed mobility and LB dressing needs. Pt to go to skilled rehab today. Goals Self-Feeding Goal Independent Grooming Goal Independent Dressing Goal Independent Toileting Goal Independent Bathing Goal Independent Toilet Transfer Goal Independent Shower Transfer Goal Independent Days to Meet Goals 10 Discharge Recommendations OT Discharge SNF Rehab Recommendations Transportation Needs Wheelchair/Cabulance at Discharge
== END 2025-03-03 12:15 | DRG 566 ==
LOC: ED 14:52 → AC 14:53
PROVIDERS: Admitting Provider Hospitalist; Emergency Provider Emergency Medicine; PCP Physician Assistant; Referring Provider Emergency Medicine; Visit Provider Hospitalist
DX: T79.6XXA Traumatic ischemia of muscle, initial encounter (principal); I35.0 Nonrheumatic aortic (valve) stenosis; R53.1 Weakness; E78.5 Hyperlipidemia, unspecified; I10 Essential (primary) hypertension; N40.0 Benign prostatic hyperplasia without lower urinary tract symptoms; E11.9 Type 2 diabetes mellitus without complications; H91.90 Unspecified hearing loss, unspecified ear; K21.9 Gastro-esophageal reflux disease without esophagitis; W18.30XA Fall on same level, unspecified, initial encounter; Z79.84 Long term (current) use of oral hypoglycemic drugs; Z79.4 Long term (current) use of insulin
CPT/HCPCS: 36415; 71045; 80048; 80053; 80320; 81001; 82550; 82962; 83036; 84484; 85025; 87040; 93005; 93306; 96365; 97162; 97167; 97530; 97535; 99283; 99284; J1644; J1815; J7030